=== PATIENT | female | born 1945 | race Caucasian/White ===

== ENCOUNTER → 2017-02-03 16:43 | Outpatient (CLI) | payer MEDICARE, OTHER | END | disposition home or self-care (01) | LOC: D.MAMMO 08:00 | DX: Z12.31 Encounter for screening mammogram for malignant neoplasm of breast (principal) ==

== ENCOUNTER → 2018-02-04 16:43 | Outpatient (CLI) | payer MEDICARE, OTHER | END | disposition home or self-care (01) | LOC: D.MAMMO 01-25 09:00 | DX: Z12.31 Encounter for screening mammogram for malignant neoplasm of breast (principal) ==

== ENCOUNTER 2019-02-15 08:00 | Outpatient (CLI) | payer MEDICARE, OTHER | END 2019-02-15 09:00 | disposition home or self-care (01) | LOC: D.MAMMO 08:00 | PROVIDERS: ATTEND Emergency Medicine | DX: Z12.31 Encounter for screening mammogram for malignant neoplasm of breast (principal) ==

== ENCOUNTER → 2019-02-23 18:29 | Outpatient (CLI) | payer MEDICARE, OTHER | END | disposition home or self-care (01) | LOC: D.LABREF 18:29 | PROVIDERS: ATTEND Urology | DX: N39.0 Urinary tract infection, site not specified (principal) ==

== ENCOUNTER → 2019-03-08 09:04 | Outpatient (CLI) | payer MEDICARE, OTHER | END | disposition home or self-care (01) | LOC: D.CT 09:04 | PROVIDERS: ATTEND Urology | DX: R31.0 Gross hematuria (principal) ==

== ENCOUNTER 2019-03-10 09:00 | Outpatient (CLI) | payer MEDICARE, OTHER | END 2019-03-10 10:00 | disposition home or self-care (01) | LOC: D.MAMMO 09:00 | PROVIDERS: ATTEND Emergency Medicine | DX: R92.8 Other abnormal and inconclusive findings on diagnostic imaging of breast (principal) ==

== ENCOUNTER → 2019-03-18 16:00 | Outpatient (CLI) | payer MEDICARE, OTHER | END | disposition home or self-care (01) | LOC: D.LABREF 16:00 | PROVIDERS: ATTEND Urology | DX: N39.0 Urinary tract infection, site not specified (principal) ==

== ENCOUNTER 2019-04-05 06:30 | Day surgery (SDC) | payer MEDICARE, OTHER ==
[2019-04-04 09:53] LABS: HEMATOCRIT 41.2 % (36.0-48.0); HEMOGLOBIN 14.2 g/dL (12-16); MCH 31.7 pg (26.0-34.0); MCHC 34.5 g/dL (31.0-37.0); MEAN PLATELET VOLUME 9.8 fL (7.4-10.4); RBC 4.48 10x6/uL (4.00-5.40); RDW 14.2 % (11.5-14.5); WBC 7.2 10x3/uL (4.8-10.8)
[2019-04-04 10:05] LABS: INR 1.06 (0.85-1.17); PROTIME 13.3 SECONDS (11.6-15.0)
[2019-04-04 10:06] LABS: CALC OSMOLALITY 284 mosm/kg (275-300); CALCIUM 9.8 mg/dL (8.5-10.1); CARBON DIOXIDE 31.6 mmol/L (21.0-32.0); CHLORIDE - SERUM 104 mmol/L (98-107); CREATININE - SERUM 0.6 mg/dL (0.6-1.3); GLUCOSE 109 mg/dL (74-106); POTASSIUM - SERUM 3.5 mmol/L (3.5-5.1); SODIUM 143 mmol/L (136-145); UREA NITROGEN 10 mg/dL (7-18); eGFR NON AFRICAN AMERICAN > 90 mL/min (90-120)
[~2019-04-05] VITALS: Ht 162.6 cm; Wt 72.6 kg
[~2019-04-05 06:30] MED LIST: AMBIEN10 MG PO; ASCORBIC ACID500 MG PO; ATIVAN0.5 MG PO; COUMADIN1 MG PO; COZAAR100 MG PO; CYANOCOBAL1000 MCG/4 IM; DETROL LA4 MG PO; FLUTICASONE PRO16 GM NASAL; ZIAC 10-6.25 MG1 TAB PO
[2019-04-05 07:32] VITALS: BP 110/74; Ht 162.6 cm; Wt 72.6 kg
--- NOTE | 2019-04-05 09:29 | NUR ---
0929 FL DIET SERVED.
--- NOTE | 2019-04-05 09:29 | NUR ---
0986 DR. GERMAN PAN.
--- NOTE | 2019-04-05 09:47 | OP ---
PATIENT NAME: ANSLEY KEARNEY MEDICAL RECORD: [id number] :46 LOCATION:D.OPS ADMISSION DATE: SURGEON: GEN PORTER MD DATE OF OPERATION: 04/05/2019 SURGEON: Gen Porter MD ANESTHESIA: TIVA by Anthony Bella CRNA. DIAGNOSES: Microscopic hematuria, interstitial cystitis. PROCEDURE: Cystoscopy, hydrodistention of the bladder, intravesical Rimso instillation. FINDINGS: Single ureteral orifices bilaterally with no bladder tumors. Diffuse bladder inflammation. BLOOD LOSS: None. CLINICAL HISTORY: This is a 73-year-old female who has had episodes of gross hematuria. She had a CT scan, which was normal and showed some colonic diverticulosis. She did have an UTI with enterococcus and Klebsiella at one of her visits. She has persistent microscopic hematuria. Today, she comes for a cystoscopy to complete the hematuria workup. SHE IS ALLERGIC TO SEVERAL MEDICATIONS, but she is not allergic to Ancef. She was given Ancef electronics commodity manager to the OR. DESCRIPTION OF PROCEDURE: The patient was given IV sedation. She was placed into lithotomy position and prepped and draped. A 21-Wolof cystoscope with 30-degree lens was used for visualization. She has no bladder tumors, but there is diffuse inflammation. This is probably exacerbated by her use of warfarin for stroke prevention. The warfarin has been held for the past 3 days. I performed hydrodistention of the bladder to 500 mL and held it for 2 minutes. The bladder was then emptied. We then inserted 50 mL of Rimso solution through a 14-Wolof red rubber catheter. The catheter was removed, leaving the solution in the bladder. The patient will be seen in 2 weeks to check on her voiding symptoms. TRANSINT:[id number] Voice Confirmation ID: [id number] DOCUMENT ID: [id number] GEN PORTER MD at 0947 CC: [id number] DICTATION DATE: 04/05/19914 BRICK SIDING APPLICATOR: 04/05/19925 [id number] [place] [address]
== END 2019-04-05 10:55 | disposition home or self-care (01) ==
LOC: D.OPS 06:30 → D.PAN 08:20 → D.OPS 08:30 → D.PAN 10:15 → D.OPS 10:55
PROVIDERS: Anesthesiology; ATTEND Urology
DX: N30.91 Cystitis, unspecified with hematuria (principal); Z01.812 Encounter for preprocedural laboratory examination

== ENCOUNTER → 2019-05-18 18:21 | Outpatient (CLI) | payer MEDICARE, OTHER ==
[2019-04-05 07:32] VITALS: BMI 27.5
== END | disposition home or self-care (01) ==
LOC: D.LABREF 18:21
PROVIDERS: ATTEND Urology
DX: Z00.01 Encounter for general adult medical examination with abnormal findings (principal)

== ENCOUNTER 2020-12-01 07:26 | Inpatient (IN) | payer MEDICARE, OTHER ==
[~2020-12-01] VITALS: Ht 162.6 cm; Wt 72.6 kg
--- NOTE | 2020-12-01 07:37 | NUR ---
PT STATES SHE DID NOT HIT HER HEAD WHEN FALLING AND DID NOT HAVE SYNCOPE.
[2020-12-01 08:46] LABS: BASOPHILS 0.1 % (0-2); EOSINOPHILS 0.8 % (0-7); HEMATOCRIT 40.8 % (36.0-48.0); HEMOGLOBIN 13.9 g/dL (12-16); IMMATURE GRANULOCYTES 0.1 % (0-5); LYMPHOCYTE ABS# 1.39 10x3/uL (1.18-3.74); LYMPHOCYTES 19.6 % (15-50); MCH 30.8 pg (26.0-34.0); MCHC 34.1 g/dL (31.0-37.0); MCV 90.5 fL (80.0-100.0); MEAN PLATELET VOLUME 9.4 fL (7.4-10.4); MONOCYTES 5.6 % (2-11); NEUTROPHIL ABS# 5.23 10x3/uL (1.56-6.13); NEUTROPHILS 73.8 % (40-80); PLATELET COUNT 246 10x3/uL (130-400); RBC 4.51 10x6/uL (4.00-5.40); WBC 7.1 10x3/uL (4.8-10.8)
[2020-12-01 08:55] LABS: INR 3.98 (0.85-1.17); PROTIME 36.2 SECONDS (11.6-15.0)
[2020-12-01 08:56] LABS: APTT 73.2 SECONDS (22.8-39.4)
[2020-12-01 09:03] LABS: CALC OSMOLALITY 279 mosm/kg (275-300); CALCIUM 9.3 mg/dL (8.5-10.1); CARBON DIOXIDE 28.4 mmol/L (21.0-32.0); CHLORIDE - SERUM 105 mmol/L (98-107); CREATININE - SERUM 0.6 mg/dL (0.6-1.3); GLUCOSE 120 mg/dL (74-106); POTASSIUM - SERUM 3.2 mmol/L (3.5-5.1); SODIUM 140 mmol/L (136-145); UREA NITROGEN 12 mg/dL (7-18); eGFR NON AFRICAN AMERICAN > 90 mL/min (90-120)
[2020-12-01 09:08] LABS: ALBUMIN 3.4 g/dL (3.4-5.0); ALKALINE PHOSPHATASE 69 U/L (30-120); ALT (SGPT) 27 U/L (10-68); BILIRUBIN - TOTAL 0.24 mg/dL (0.2-1.3); PROTEIN - SERUM 7.1 g/dL (6.4-8.2)
[2020-12-01 09:37] VITALS: BP 144/61
[2020-12-01 09:41] LABS: BILIRUBIN NEGATIVE (NEGATIVE); KETONE NEGATIVE (NEGATIVE); NITRITE NEGATIVE (NEGATIVE); UROBILINOGEN NORMAL mg/dL (< 2)
[2020-12-01 09:45] LABS: BACTERIA FEW HPF (NONE SEEN); WHITE CELLS - URINE 1 HPF (0-4)
[2020-12-01 10:13] VITALS: BP 145/66
--- NOTE | 2020-12-01 11:00 | NUR ---
RECEIVED TO ROOM 1208 VIA BED FROM ER. A/O X3. NO C/O OF PAIN UNLESS MOVING. SKIN INTACT WTIHOUT REDNESS. DENIES NEEDS.
[2020-12-01] MEDS ORDERED: ACETAMINOPHEN325 MG PO (11:04)
[2020-12-01 11:05] VITALS: BP 133/56; BMI 27.5
--- NOTE | 2020-12-01 13:00 | NUR ---
ATE ABOUT 75% OF LUNCH. DENIES NEEDS. NO C/O PAIN UNLESS SHE MOVES. WILL MONITOR.
--- NOTE | 2020-12-01 15:45 | NUR ---
RESTING QUIETLY IN BED WITH EYES CLOSED. NO NEEDS. NOTED.
[2020-12-01 16:22] VITALS: BP 148/75
--- NOTE | 2020-12-01 17:38 | NUR ---
REFUSED SUPPER TRAY. AGREED TO ALTERNATIVE OF SANDWICH. DENIES NEEDS. CALL IN TO [facility] FOR PAIN MEDS. DENIES NEEDS.
--- NOTE | 2020-12-01 19:30 | NUR ---
RECEIVED REPORT, WILL ASSUME CARE OF PT, VISITING WITH , DENIES ANY NEEDS AT THIS TIME, BED IS LOW, SRX2, CALL LIGHT IN REACH, WILL CONTINUE PLAN OF CARE
[2020-12-01 19:36] VITALS: BP 160/70
[2020-12-02 04:00] VITALS: BP 109/47
--- NOTE | 2020-12-02 06:23 | NUR ---
I have reviewed this patient and I concur with the Shift Assessment completed by the Licensed Practical Nurse today this shift.
[2020-12-02 06:39] LABS: BASOPHILS 0.4 % (0-2); EOSINOPHILS 1.4 % (0-7); HEMOGLOBIN 12.6 g/dL (12-16); IMMATURE GRANULOCYTES 0.4 % (0-5); LYMPHOCYTE ABS# 2.43 10x3/uL (1.18-3.74); LYMPHOCYTES 30.2 % (15-50); MCH 30.1 pg (26.0-34.0); MCHC 33.2 g/dL (31.0-37.0); MCV 90.9 fL (80.0-100.0); MEAN PLATELET VOLUME 9.7 fL (7.4-10.4); MONOCYTES 7.2 % (2-11); NEUTROPHIL ABS# 4.87 10x3/uL (1.56-6.13); NEUTROPHILS 60.4 % (40-80); PLATELET COUNT 269 10x3/uL (130-400); RBC 4.18 10x6/uL (4.00-5.40); RDW 14.4 % (11.5-14.5); WBC 8.1 10x3/uL (4.8-10.8)
[2020-12-02 07:28] VITALS: BP 138/63
[2020-12-02 07:30] LABS: ALBUMIN 2.9 g/dL (3.4-5.0); ALKALINE PHOSPHATASE 60 U/L (30-120); ALT (SGPT) 23 U/L (10-68); BILIRUBIN - TOTAL 0.42 mg/dL (0.2-1.3); CALC OSMOLALITY 276 mosm/kg (275-300); CALCIUM 8.4 mg/dL (8.5-10.1); CARBON DIOXIDE 26.3 mmol/L (21.0-32.0); CHLORIDE - SERUM 106 mmol/L (98-107); CREATININE - SERUM 0.6 mg/dL (0.6-1.3); GLUCOSE 100 mg/dL (74-106); POTASSIUM - SERUM 3.9 mmol/L (3.5-5.1); PROTEIN - SERUM 5.8 g/dL (6.4-8.2); SODIUM 139 mmol/L (136-145); UREA NITROGEN 9 mg/dL (7-18); eGFR NON AFRICAN AMERICAN > 90 mL/min (90-120)
--- NOTE | 2020-12-02 08:04 | NUR ---
AWAKE AND ALERT. ORIENTED X3. NO C/O AT THIS TIME. SITTING UP IN BED EATING BREAKFAST. LUNGS ARE CLEAR BILATERALLY, NO COUGH NOTED. SKIN IS INTACT WITHOUT REDNESS. IV TO LEFT AC IS PATENT WITHOUT REDNESS AT INSERTION SITE. DENIES NEEDS.
--- NOTE | 2020-12-02 09:00 | NUR ---
ATE MOST OF BREAKFAST. TOOK AM MEDS WITHOUT DIFFICULTY. C/O SOME FEELINGS OF NAUSEA. REQUESTED AND GIVEN ONE HYDROCODONE FOR PAIN LEVEL 5 AND 4MG ZOFRAN SLOW IVP FOR C/O NAUSEA. WILL MONITOR.
--- NOTE | 2020-12-02 10:30 | NUR ---
RESTING QUIETLY IN BED WITH EYES CLOSED. NO NEEDS NOTED.
--- NOTE | 2020-12-02 12:52 | NUR ---
ATE LESS THAN HALF OF LUNCH. DENIES NEEDS. NO C/O NAUSEA AT THIS TIME.
[2020-12-02 13:24] VITALS: BP 139/64
[2020-12-02 16:40] VITALS: BP 148/72
--- NOTE | 2020-12-02 19:10 | NUR ---
ATE MOST OF SUPPER. DENIES NEEDS AT THIS TIME. NO CHANGES NOTED.
--- NOTE | 2020-12-02 19:13 | NUR ---
PATIENT RESTING IN BED WITH NO S/S OF DISTRESS. PATIENT DENIES NEEDS AT THIS TIME. BED IN LOWEST POSITION AND CALL LIGHT WITHIN REACH. ENCOURAGED THE PATIENT TO CALL WITH NEEDS.
[2020-12-02 20:08] VITALS: BP 138/64
--- NOTE | 2020-12-02 20:43 | NUR ---
ADMINISTERED MEDS PER ORDERS. PATIENT JEET WELL. ENCOURAGED TO CALL WITH NEEDS.
[2020-12-03] VITALS (12 sets, daily range): BP systolic 111–144; BP diastolic 59–80; Ht 162.6 cm; Wt 72.6 kg
--- NOTE | 2020-12-03 07:45 | NUR ---
PT RESTING QUIETLY IN BED. RESP EVEN AND UNLABORED. PT REPORTS PAIN TO RIGHT LOWER EXTREMITY 5/10 AT THIS TIME. DISCUSSED NEXT TIME PAIN MEDICATION COULD BE ADMINISTERED PER MD ORDERS. PT VOICES UNDERSTANDING. IV TO LEFT AC WITH NS @ 100ML/HR INFUSING VIA PUMP. SITE WITHOUT REDNESS OR EDEMA. F/C PATENT TO GRAVITY. PT NPO FOR UPCOMING SURGERY. PT VOICES UNDERSTANDING OF NPO STATUS. DENIES FURTHER NEEDS AT THIS TIME. CL WITHIN REACH. ENCOURAGED TO CALL WITH NEEDS. CONTINUE POC
[2020-12-03 10:07] LABS: BASOPHILS 0.3 % (0-2); EOSINOPHILS 1.4 % (0-7); HEMATOCRIT 38.7 % (36.0-48.0); HEMOGLOBIN 12.9 g/dL (12-16); IMMATURE GRANULOCYTES 0.3 % (0-5); LYMPHOCYTE ABS# 1.66 10x3/uL (1.18-3.74); LYMPHOCYTES 18.9 % (15-50); MCH 30.4 pg (26.0-34.0); MCHC 33.3 g/dL (31.0-37.0); MCV 91.3 fL (80.0-100.0); MEAN PLATELET VOLUME 9.5 fL (7.4-10.4); MONOCYTES 6.4 % (2-11); NEUTROPHIL ABS# 6.37 10x3/uL (1.56-6.13); NEUTROPHILS 72.7 % (40-80); PLATELET COUNT 253 10x3/uL (130-400); RBC 4.24 10x6/uL (4.00-5.40); RDW 14.1 % (11.5-14.5); WBC 8.8 10x3/uL (4.8-10.8)
[2020-12-03 10:25] LABS: CALC OSMOLALITY 277 mosm/kg (275-300); CALCIUM 8.6 mg/dL (8.5-10.1); CARBON DIOXIDE 27.7 mmol/L (21.0-32.0); CHLORIDE - SERUM 106 mmol/L (98-107); CREATININE - SERUM 0.5 mg/dL (0.6-1.3); GLUCOSE 108 mg/dL (74-106); MAGNESIUM - SERUM 2.3 mg/dL (1.8-2.4); POTASSIUM - SERUM 3.4 mmol/L (3.5-5.1); SODIUM 139 mmol/L (136-145); UREA NITROGEN 9 mg/dL (7-18); eGFR NON AFRICAN AMERICAN > 90 mL/min (90-120)
[2020-12-03 10:35] LABS: INR 1.26 (0.85-1.17); PROTIME 14.7 SECONDS (11.6-15.0)
--- NOTE | 2020-12-03 19:00 | NUR ---
REPORT GIVEN BY [place] [facility]
--- NOTE | 2020-12-03 19:15 | NUR ---
PT TO ROOM 1208 FROM SURGERY. STARTED VS SHEET. SHE IS VERY DROWSEY NOW. WILL BE CHECKING IN AT LEAST EVERY 15 MINUTES.
--- NOTE | 2020-12-03 20:00 | NUR ---
ASSESSMENT COMPLETED. PT STILL SLEEPY. SHE HAS A DRY DRESSING TO HER RIGHT HIP AREA. SHE HAS 02 @ 3L/NC. PT FELL A WEEK AGO. SHE HAS A NICE SIZE BLUE BRUISE ON THE RIGHT HIP. SHE HAS A AFOLEY CATHETER. SHE HAS TEDS/SCD IN PLACE. SHE IS STILL NOT C/O ANY PAIN AT THIS TIME. I GAVE HER THE TALK ABOUT NOT LETTING PAIN GET AHEAD OF HER PAIN. VS STILL Q 15 MIN. SKIN WARM AND DRY. IV IS IN THE RIGHT HAND WITH FLUIDS INFUSING AT 100ML/HR.
--- NOTE | 2020-12-03 22:00 | NUR ---
VS CONT. PT ATE SOME SALTINES BEFORE HER MEDS WERE GIVEN. NO NAUSEA. NO VOMITING. PT IS WIDE AWAKE AT THIS TIME. STILL NO C/O
--- NOTE | 2020-12-03 23:30 | NUR ---
PT C/O PAIN THAT SHE RATES A 7. 1 MG OF DILAUDID WAS GIVEN SLOWLY IV.
[2020-12-04] VITALS: BP 125/71
--- NOTE | 2020-12-04 | NUR ---
PT IS RESTING QUIETLY WITH HER EYES CLOSED WITHOUT C/O
--- NOTE | 2020-12-04 03:15 | NUR ---
PT HAS BEEN AWAKE AND TALKING. SHE IS RESTING AGAIN NOW QUIETLY.
[2020-12-04 04:00] VITALS: BP 114/58
--- NOTE | 2020-12-04 04:40 | NUR ---
PT IS C/O PAIN. SHE RATED THIS PAIN A 7 TO HER RIGHT HIP. SHE STATES SHE DOES NOT WANT ANY MORE DILAUDID OR MORPHINE B/C IT MAKES HER FEEL LIKE SHE'S SPINNING. I EXPLAINED TO HER THAT SHE DID NOT HAVE JUST TYLENOL ORDERED BUT I HAD NORCO'S ORDERED WHICH HAD TYLENOL IN THEM. SHE ELECTED TO TAKE 10 MG OF NORCO PO.
--- NOTE | 2020-12-04 04:50 | NUR ---
NORCO 10 MG GIVEN PO FOR PAIN. PT IS EATING ON SOME EDDIE CRACKERS TO HELP PREVENT NAUSEA.
[2020-12-04 07:00] VITALS: BP 186/96
[2020-12-04 07:12] LABS: CALCIUM 7.8 mg/dL (8.5-10.1); CARBON DIOXIDE 27.1 mmol/L (21.0-32.0); CHLORIDE - SERUM 105 mmol/L (98-107); CREATININE - SERUM 0.6 mg/dL (0.6-1.3); GLUCOSE 150 mg/dL (74-106); SODIUM 141 mmol/L (136-145); eGFR NON AFRICAN AMERICAN > 90 mL/min (90-120)
[2020-12-04 07:14] LABS: CALC OSMOLALITY 284 mosm/kg (275-300); POTASSIUM - SERUM 4.1 mmol/L (3.5-5.1); UREA NITROGEN 15 mg/dL (7-18)
[2020-12-04 07:19] LABS: BASOPHILS 0.1 % (0-2); EOSINOPHILS 0 % (0-7); HEMOGLOBIN 11.8 g/dL (12-16); IMMATURE GRANULOCYTES 0.4 % (0-5); LYMPHOCYTES 8.5 % (15-50); MCH 30.1 pg (26.0-34.0); MCHC 32.8 g/dL (31.0-37.0); MCV 91.8 fL (80.0-100.0); MEAN PLATELET VOLUME 9.7 fL (7.4-10.4); MONOCYTES 6.8 % (2-11); NEUTROPHIL ABS# 8.86 10x3/uL (1.56-6.13); NEUTROPHILS 84.2 % (40-80); PLATELET COUNT 300 10x3/uL (130-400); RBC 3.92 10x6/uL (4.00-5.40); RDW 14.1 % (11.5-14.5); WBC 10.5 10x3/uL (4.8-10.8)
--- NOTE | 2020-12-04 09:08 | NUR ---
PT C/O PAIN 04/13. PRN PAIN MED GIVEN. REQUESTED NORCO AT PRESENT TIME. PT STABLE WITH EQUAL NON LABORED RR. AFEBRILE AT PRESENT TIME. WILL RE ASSESS PAIN. WILL CONT TO MONITOR.
--- NOTE | 2020-12-04 09:36 | NUR ---
PT REPORTS PAIN 7/10 AFTER THERAPY GOT PT UP FROM BED. PT REPORTS DOES NOT WANT THE MORPHINE THAT IT MAKES HER SICK. HOWEVER WOULD LIKE SOMETHING TO CUT THE PAIN DOWN. WILL RE ASSESS AND GIVE PRN PAIN MED PER EMAR.
[2020-12-04 11:00] VITALS: BP 164/80
--- NOTE | 2020-12-04 11:17 | OP ---
PATIENT NAME: ANSLEY KEARNEY MEDICAL RECORD: [id number] :46 LOCATION:D.M3 D.1208 ADMISSION DATE:12/01/20 SURGEON: SHANTANU BEYER DO DATE OF OPERATION: 12/03/2020 PROCEDURE PERFORMED: Right total hip arthroplasty. PREOPERATIVE DIAGNOSIS: Right femoral neck fracture, displaced. POSTOPERATIVE DIAGNOSIS: Right femoral neck fracture, displaced. INDICATIONS: Ms. Kearney is a 75-year-old female who fell approximately 11 days ago and showed up to the ER 3 days ago. She said that she had right hip pain and could hardly bear weight on it. X-rays were taken and seen to have a displaced right femoral neck fracture. Her INR was 3.98, too high to do surgery. I gave him vitamin K and told her would probably be Thursday by the time it came down and nothing I did. Today was 1.2 and within the range to be able to operate on her. She is aware of the risk of this surgery including infection, bleeding, damage to nerves and vessels in the area, continued pain, fracture, bleeding, loosening of the implants, failure of implants, leg length discrepancy, blood clots and even and she signed the consent. SURGEON: Shantanu Beyer DO DESCRIPTION OF PROCEDURE: The patient was taken to the operative suite, laid in supine position. Given general anesthetic and intubated. She was given 2 grams of Ancef preoperatively. She was then moved over to the [place] table and positioned. The right hip was prepped and draped in sterile fashion. A timeout was performed. Everyone was in agreement with the correct site, side, patient, and procedure. We then began by making careful dissection down over the tensor fascia mannie muscle to the muscle belly, took the fascia anteriorly and muscle belly posteriorly, opened up rectus interval. The rectus was then taken medially and the tensor fascia mannie laterally. I then coagulated the vessels in the area and put Hohmanns around the neck and opened up the capsule and a gush of blood came out of the capsule from the fracture, tagged the capsule, put Hohmanns around the fractured neck, recut the neck, removed the head and neck, and then removed the labrum and pulvinar and the acetabulum and then started reaming first with a 42 reamed up to a 48. I then impacted the cup and saw that went quite down. I reamed with a 48 and impacted the cup in. The 48 fit very well and I attempted to check to see if it was loose and was not, it was very well placed with a Marcell and then impacted the liner in under fluoro. I then exposed the femur and put the femoral hook in and raised the femur up. I used cookie cutter, canal finder and then released any release I needed to and broached from a 7 up to a 9 and 9 fit very well. Put a -6 neck and head on, reduced the hip. The hip reduced very well. X-rays were taken and they were equal lengths to the left and right on lesser trochanter/tuberosities. I then dislocated that, removed the trials and irrigated and put the actual implant in, impacted in the stem and then put a dual mobility -6 neck head on, reduced it and then x-rays were taken and no fracture is seen in the femur. There were equal lengths in the lesser tuberosities. I then irrigated with 10% povidone iodine and 500 mL normal saline solution and irrigated out with over a liter of normal saline. I let it sit for a minute. I then put in Rishi powder, vancomycin and tobramycin powder, and then closed the tensor fascia mannie fascia with #1 Vicryl in a [id number] and then a running locking stitch and the skin with 2-0 Vicryl in inverted interrupted fashion, 4-0 Monocryl running on OPERATIVE REPORT [id number] ANSLEY KEARNEY the skin. Prineo glue was placed on the skin and then once it dried, Telfa and Tegaderm. She was then awakened and taken to recovery in stable condition. Blood loss approximately 300 mL. COMPLICATIONS: None. TRANSINT:[id number] Voice Confirmation ID: [id number] DOCUMENT ID: [id number] SHANTANU BEYER DO at 1117 CC: [id number] DICTATION DATE: 12/03/20 183 FLIGHT TEST DATA ACQUISITION TECHNICIAN: 12/04/20 0025 ADM IN [facility] [address] [place] [id number]
--- OUTSIDE RECORDS SUMMARY | 2020-12-04 11:28 | XMS Report ---
Demographics + + + | Address | [address] | | | [place], [place] | | | [address] | + + + | Home Phone | | + + + | Preferred Language | Unknown | + + + | Marital Status | | + + + | Baptism Affiliation | Unknown | + + + | Race | White | + + + | Ethnic Group | Not or | + + + Author + + + | Author | [facility], | | | [facility] | | | [place] | + + + | Organization | [facility], | | | [facility] | | | [place] | + + + | Address | [address] | | | [place] [address] | | | | + + + | Phone | [phone] | + + + Care Team Providers + +------+ + | Care Program Review Director Name | Role | Phone | + +------+ + | MARIAM HAWLEY | 3 | [phone] | + +------+ + | MARIAM HAWLEY | 4 | [phone] | + +------+ + Reason for Referral Reason for Visit Osteoarthritis of knee Assessment No assessment recorded. Patient Targets + + + + | Encounter Date | Instructions | Goals | | | | | | | | | + + + + | 12/04/2020 | | | | | | | | | | | + + + + Plan of Treatment + + + + + + + | Reminders | | Order | Submit | Provider | Details | | | | Date | Date | | | | | | | | | | | | | | | | | | | | | | | | | | | | | | | + + + + + + + | | None | | | | | | | recorded. | | | | | | | | | | | | | | | | | | | | | | | | | | | Appointme | | | | | | | nts | | | | | | | | | | | | | | | | | | | | | | | | | | | | | | | | | | | | | | | | | | | | | | | | | | | | | | | | | | | | | | + + + + + + + | | None | | | | | | | recorded. | | | | | | | | | | | | | | | | | | | | Lab | | | | | | | | | | | | | | | | | | | | | | | | | | | | | | | | | | | | | | | | | | | | | | | | | | | | | | | | | | | | | | + + + + + + + | | | | | | | | | | | | National | | | | | 1 | | Park | | | | | | 1 | Medical | | | | | | | Center, | | | Referral | orthopedi | | | [address] | | | | c | | | Medical | | | | referral | | | [address], Hot | | | | | | | [place], | | | | | | | [place], | | | | | | | [address], [place] | | | | | | | (501) | | | | | | | [address] | | | | | | | | | | | | | | | | | | | | | | | | | | | | | | + + + + + + + | | None | | | | | | | recorded. | | | | | | | | | | | | | | | | | | | | | | | | | | | Procedure | | | | | | | s | | | | | | | | | | | | | | | | | | | | | | | | | | | | | | | | | | | | | | | | | | | | | | | | | | | | | | | | | | | | | | + + + + + + + | | None | | | | | | | recorded. | | | | | | | | | | | | | | | | | | | | | | | | | | | Surgeries | | | | | | | | | | | | | | | | | | | | | | | | | | | | | | | | | | | | | | | | | | | | | | | | | | | | | | | | | | | | | | + + + + + + + | | None | | | | | | | recorded. | | | | | | | | | | | | | | | | | | | | | | | | | | | Imaging | | | | | | | | | | | | | | | | | | | | | | | | | | | | | | | | | | | | | | | | | | | | | | | | | | | | | | | | | | | | | | + + + + + + + Results +--------+--------+--------+--------+--------+--------+--------+--------+ | Date | Name | Descri | Value | Unit | Range | Abnorm | Provid | | | | ption | | | | al | er | | | | | | | | Flag | Detail | | | | | | | | | | | | | | | | | | | | | | | | | | | | | | | | | | | | | | | | | | | | | | | | | | | | | | | +--------+--------+--------+--------+--------+--------+--------+--------+ | 12/02/ | PT/INR | | 2.00 | | 0.85-1 | high | | | 2021 | | | | | .17 | | | | | | | | | | | | | | | | | | | | | | | | | | | | | | | | | | | | | | | | | | | | | | | | | | | INR in | | | | | Nation | | | | | | | | | al | | | | platel | | | | | Park | | | | et | | | | | Medica | | | | poor | | | | | l | | | | plasma | | | | | Center | | | | by | | | | | | | | | coagul | | | | | | | | | ation | | | | | | | | | assay | | | | | | | | | | | | | | | | | | | | | | | | | | | | | | | | | | | | | | | | | | | | | | | | | | | | | | | | | | | | | | | | | | | | | | | | | | | | | | | | | | | | | | | | | | | | | | | | | | | | | | | | 1909 | | | | | | | | | [address] | | | | | | | | | [address], | | | | | | | | | Hot | | | | | | | | | Spring | | | | | | | | | s, [place], | | | | | | | | | | | | | | | | | | [address]- | | | | | | | | | [address], | | | | | | | | | Ph | | | | | | | | | (501) | | | | | | | | | 321[address]10 | | | | | | | | | 00 | | | | | | | | | | | | | | | | | | | | | | | | | | | | | | | | | | | | | | | | | | | | | | | | | | | | | | | | | | | | | | | | | | | | | | | | | | | | | | | | | | | | | | | | | | | | | | | | | | | | +--------+--------+--------+--------+--------+--------+--------+--------+ | 02/28/ | PT/INR | | 21.0 | second | 11.6-1 | high | | | 2021 | | | | s | 5.0 | | | | | | | | | | | | | | | | | | | | | | | | | | | | | | | | | | | | | | | | | | | | | | | | | | | prothr | | | | | Nation | | | | ombin | | | | | al | | | | time | | | | | Park | | | | (PT) | | | | | Medica | | | | in | | | | | l | | | | platel | | | | | Center | | | | et | | | | | | | | | poor | | | | | | | | | plasma | | | | | | | | | by | | | | | | | | | coagul | | | | | | | | | ation | | | | | | | | | assay | | | | | | | | | | | | | | | | | | | | | | | | | | | | | | | | | | | | | | | | | | | | | | | | | | | | | | | | | | | | | | | | | | | | | | | | | | | | | 1909 | | | | | | | | | [address] | | | | | | | | | [address], | | | | | | | | | Hot | | | | | | | | | Spring | | | | | | | | | s, [place], | | | | | | | | | | | | | | | | | | [address]- | | | | | | | | | [address], | | | | | | | | | Ph | | | | | | | | | (501) | | | | | | | | | 321[address]10 | | | | | | | | | 00 | | | | | | | | | | | | | | | | | | | | | | | | | | | | | | | | | | | | | | | | | | | | | | | | | | | | | | | | | | | | | | | | | | | | | | | | | | | | | | | | | | | | | | | | | | | | | | | | | | | | +--------+--------+--------+--------+--------+--------+--------+--------+ | | XR, | | | | | | | | | hip, | | | | | | | | | unilat | | | | | | | | | eral, | | | | | | | | | 1 view | | | | | | | | | | | | | | | | | | | | | | | | | | | | | No | | | | Nation | | | | | observ | | | | al | | | | | ation | | | | Park | | | | | record | | | | Medica | | | | | ed. | | | | l | | | | | | | | | Center | | | | | | | | | | | | | | | | | | (Imagi | | | | | | | | | ng) | | | | | | | | | | | | | | | | | | | | | | | | | | | | | | | | | | | | | | | | | | | | | | | | | | | | | | | | | | | | | | | | | | | | | | | | | | | | | | | | | | | | | | | | | | | | | | | | | | | | | | | | | | | | | | | | | | | | | | | | | | | | | | | | | | | | | | | 1909 | | | | | | | | | [address] | | | | | | | | | [address], | | | | | | | | | Hot | | | | | | | | | Spring | | | | | | | | | s | | | | | | | | | Nation | | | | | | | | | al | | | | | | | | | Park, | | | | | | | | | [place], | | | | | | | | | [address], | | | | | | | | | Ph | | | | | | | | | (501) | | | | | | | | | [address] | | | | | | | | | 75 | | | | | | | | | | | | | | | | | | | | | | | | | | | | | | | | | | | | | | | | | | | | | | | | | | | | | | | | | | | | | | | | | | | | | | | | | | | | | | | | | | | | | | | | | | | | | | | | | | | | +--------+--------+--------+--------+--------+--------+--------+--------+ | | imagin | | | | | | | | | g/diag | | | | | | | | | nostic | | | | | | | | | | | | | | | | | | result | | | | | | | | | | | | | | | | | | | | | | | | | | | | | No | | | | Nation | | | | | observ | | | | al | | | | | ation | | | | Park | | | | | record | | | | Medica | | | | | ed. | | | | l | | | | | | | | | Center | | | | | | | | | | | | | | | | | | (Imagi | | | | | | | | | ng) | | | | | | | | | | | | | | | | | | | | | | | | | | | | | | | | | | | | | | | | | | | | | | | | | | | | | | | | | | | | | | | | | | | | | | | | | | | | | | | | | | | | | | | | | | | | | | | | | | | | | | | | | | | | | | | | | | | | | | | | | | | | | | | | | | | | | | | 1909 | | | | | | | | | [address] | | | | | | | | | [address] | | | | | | | | | Hot | | | | | | | | | Spring | | | | | | | | | s | | | | | | | | | Nation | | | | | | | | | al | | | | | | | | | Park, | | | | | | | | | [place], | | | | | | | | | [address], | | | | | | | | | Ph | | | | | | | | | (501) | | | | | | | | | [address] | | | | | | | | | 75 | | | | | | | | | | | | | | | | | | | | | | | | | | | | | | | | | | | | | | | | | | | | | | | | | | | | | | | | | | | | | | | | | | | | | | | | | | | | | | | | | | | | | | | | | | | | | | | | | | | | +--------+--------+--------+--------+--------+--------+--------+--------+ Problems +---------+---------+---------+---------+---------+---------+---------+ | Name | Status | Last | Onset | Resolut | Lateral | Problem | | | | Modifie | Date | ion | ity | Type | | | | d Date | | Date | | | | | | | | | | | | | | | | | | | | | | | | | | | | | | | | | | | | | | | | | | | +---------+---------+---------+---------+---------+---------+---------+ | Hyperch | Active | | | | | | | olester | | 019 | 019 | | | | | olemia | | | | | | | | | | | | | | | | | | | | | | | | | | | | | | | | | | | | | | | | | | | | | | | +---------+---------+---------+---------+---------+---------+---------+ | Hyperte | Active | | | | | | | nsive | | 019 | 019 | | | | | disorde | | | | | | | | r | | | | | | | | | | | | | | | | | | | | | | | | | | | | | | | | | | | | | | | | | | | | | | | +---------+---------+---------+---------+---------+---------+---------+ | Cerebro | Active | | | | | | | vascula | | 019 | 019 | | | | | r | | | | | | | | acciden | | | | | | | | t | | | | | | | | | | | | | | | | | | | | | | | | | | | | | | | | | | | | | | | | | | | | | | | +---------+---------+---------+---------+---------+---------+---------+ | Recurre | Active | | | | | | | nt | | 019 | 019 | | | | | urinary | | | | | | | | tract | | | | | | | | infecti | | | | | | | | on | | | | | | | | | | | | | | | | | | | | | | | | | | | | | | | | | | | | | | | | | | | | | | | +---------+---------+---------+---------+---------+---------+---------+ | Blood | Active | | | | | | | in | | 019 | 019 | | | | | urine | | | | | | | | | | | | | | | | | | | | | | | | | | | | | | | | | | | | | | | | | | | | | | | +---------+---------+---------+---------+---------+---------+---------+ | Pain of | Active | | | | | | | left | | 019 | 019 | | | | | hip | | | | | | | | joint | | | | | | | | | | | | | | | | | | | | | | | | | | | | | | | | | | | | | | | | | | | | | | | +---------+---------+---------+---------+---------+---------+---------+ Procedures Surgical History + + + + + | Date | Name | Laterality | Status | | | | | | | | | | | | | | | | + + + + + | | | | active | | | | | | | | | | | | | appendectomy | | | | | | | | | | | | | | | | | | | | | | | | | | | | + + + + + Imaging Results None recorded. Medical Equipment None Reported. Allergies + + + + + + + | Name | Reaction | Severity | Status | Onset | Category | | | | | | | | | | | | | | | | | | | | | | | | | | | | | + + + + + + + | | | | | | | | | | | | | | | | | | | | | | | | | | | | | | | | | | | | Diclofex | | | active | | Medicatio | | DC | | | | | n Allergy | | | | | | | | | | | | | | | | | | | | | | | | | | | | | | | | | | | | | | | | | | | | | | | | | | | | | | | | | + + + + + + + | | | | | | | | | | | | | | | | | | | | | | | | | | | | | | | | | | | | erythromy | | | active | | Medicatio | | maryann base | | | | | n Allergy | | | | | | | | | | | | | | | | | | | | | | | | | | | | | | | | | | | | | | | | | | | | | | | | | | | | | | | | | + + + + + + + | | | | | | | | | | | | | | | | | | | | | | | | | | | | | | rash | | | | | | Flexeril | | | active | | Non-Medic | | | | | | | ation | | | | | | | Allergy | | | | | | | | | | | | | | | | | | | | | | | | | | | | | | | | | | | | | | | | | | | | | | | | | | | | | | | | | + + + + + + + | | | | | | | | | | | | | | | | | | | | | | | | | | | | | | other | | | | | | Levaquin | | | active | | Medicatio | | | | | | | n Allergy | | | | | | | | | | | | | | | | | | | | | | | | | | | | | | | | | | | | | | | | | | | | | | | | | | | | | | | | | + + + + + + + | | | | | | | | | | | | | | | | | | | | | | | | | | | | | | | | | | | | Macrobid | | | active | | Medicatio | | | | | | | n Allergy | | | | | | | | | | | | | | | | | | | | | | | | | | | | | | | | | | | | | | | | | | | | | | | | | | | | | | | | | + + + + + + + | | | | | | | | | | | | | | | | | | | | | | | | | | | | | | | | | | | | Statins-H | | | active | | Medicatio | | mg-Coa | | | | | n Allergy | | Reductase | | | | | | | | | | | | | | Inhibitor | | | | | | | s | | | | | | | | | | | | | | | | | | | | | | | | | | | | | | | | | | | | | | | | | | | | | | | | | | | | | | | | | | | | | | + + + + + + + Medications + + + + + + + | Name | Sig | Start | Stop Date | Status | Note | | | | Date | | | | | | | | | | | | | | | | | | | | | | | | | | | | | | | | + + + + + + + | | | | | active | | | | | | | | | | | | | | | | | | | | | | | | | | | | | | | | | | | | | | | | | | | | | losartan | | | | | | | 50 mg | | | | | | | tablet | | | | | | | | | | | | | | | | | | | | | | | | | | | | | | | | | | | | | | | | | | | | | | | | | | | | | | | | | | | | | | | | | | | | | | | | | | | | + + + + + + + | | | | | active | | | | | | | | | | | | | | | | | | | | | | | | | | | | | | | | | | | | | | | | | | | | | doxycycli | | | | | | | ne | | | | | | | hyclate | | | | | | | 100 mg | | | | | | | capsule | | | | | | | | | | | | | | | | | | | | | | | | | | | | | | | | | | | | | | | | | | | | | | | | | | | | | | | | | | | | | | | | | | | | | | | | | | | | + + + + + + + | | | | | active | | | | | | | | | | | | | | | | | | | | | | | | | | | | | | | | | | | | | | | | | | | | | fluconazo | | | | | | | le 150 mg | | | | | | | tablet | | | | | | | | | | | | | | | | | | | | | | | | | | | | | | | | | | | | | | | | | | | | | | | | | | | | | | | | | | | | | | | | | | | | | | | | | | | | + + + + + + + | | | | | completed | | | | | | | | | | | | | 05/22/201 | | | | | | | 9 | | | | | | | | | | | | | | | | | | | | | | | | | ciproflox | | | | | | | acin 250 | | | | | | | mg tablet | | | | | | | | | | | | | | | | | | | | | | | | | | | | | | | | | | | | | | | | | | | | | | | | | | | | | | | | | | | | | | | | | | | | | | | | | | | | + + + + + + + | | | | | active | | | | | | | | | | | | 09/18/201 | | | | | | | 9 | | | | | | Take | | | | | | | 1 capsule | | | | | | | every | | | | | | Detrol LA | day by | | | | | | 4 mg | oral | | | | | | capsule,e | route for | | | | | | xtended | 90 days. | | | | | | release | | | | | | | | | | | | | | | | | | | | | | | | | | | | | | | | | | | | | | | | | | | | | | | | | | | | | | | | | | | | | | | | | | | | | | | | | | | | + + + + + + + | | | | | active | | | | | | | | | | | | | | | | | | | | | | | | | Take | | | | | | | 1 tablet | | | | | | | every 12 | | | | | | sulfameth | hours by | | | | | | oxazole | oral | | | | | | 800 | route for | | | | | | mg-trimet | 10 days. | | | | | | hoprim | | | | | | | 160 mg | | | | | | | tablet | | | | | | | | | | | | | | | | | | | | | | | | | | | | | | | | | | | | | | | | | | | | | | | | | | | | | | | | | | | | | | | | | | | | | | | | | | | | + + + + + + + | | | | | active | | | | | | | | | | | | | | | | | | | | | | | | | | | | | | | | | | | | | | | | | | | | | prednison | | | | | | | e 10 mg | | | | | | | tablets | | | | | | | in a dose | | | | | | | pack | | | | | | | | | | | | | | | | | | | | | | | | | | | | | | | | | | | | | | | | | | | | | | | | | | | | | | | | | | | | | | | | | | | | | | | | | | | | + + + + + + + | | | | | active | | | | | | | | | | | | | | | | | | | | | | | | | | | | | | | | | | | | | | | | | | | | | Ziac 10 | | | | | | | mg-6.25 | | | | | | | mg tablet | | | | | | | | | | | | | | | | | | | | | | | | | | | | | | | | | | | | | | | | | | | | | | | | | | | | | | | | | | | | | | | | | | | | | | | | | | | | + + + + + + + | | | | | active | | | | | | | | | | | | | | | | | | | | | | | | | | | | | | | | | | | | | | | | | | | | | lorazepam | | | | | | | 0.5 mg | | | | | | | tablet | | | | | | | | | | | | | | | | | | | | | | | | | | | | | | | | | | | | | | | | | | | | | | | | | | | | | | | | | | | | | | | | | | | | | | | | | | | | + + + + + + + | | | | | active | | | | | | | | | | | | | | | | | | | | | | | | | | | | | | | | | | | | | | | | | | | | | cyanocoba | | | | | | | harpreet | | | | | | | (vit | | | | | | | B-12) | | | | | | | 1,000 | | | | | | | mcg/mL | | | | | | | injection | | | | | | | solution | | | | | | | | | | | | | | | | | | | | | | | | | | | | | | | | | | | | | | | | | | | | | | | | | | | | | | | | | | | | | | | | | | | | | | | | | | | | + + + + + + + | | | | | active | | | | | | | | | | | | | | | | | | | | | | | | | | | | | | | | | | | | | | | | | | | | | polymyxin | | | | | | | B | | | | | | | sulfate | | | | | | | 10,000 | | | | | | | unit-trim | | | | | | | ethoprim | | | | | | | 1 mg/mL | | | | | | | eye drops | | | | | | | | | | | | | | | | | | | | | | | | | | | | | | | | | | | | | | | | | | | | | | | | | | | | | | | | | | | | | | | | | | | | | | | | | | | | + + + + + + + | | | | | active | | | | | | | | | | | | | | | | | | | | | | | | | | | | | | | | | | | | | | | | | | | | | warfarin | | | | | | | 5 mg | | | | | | | tablet | | | | | | | | | | | | | | | | | | | | | | | | | | | | | | | | | | | | | | | | | | | | | | | | | | | | | | | | | | | | | | | | | | | | | | | | | | | | + + + + + + + | | | | | active | | | | | | | | | | | | | | | | | | | | | | | | | | | | | | | | | | | | | | | | | | | | | omeprazol | | | | | | | e 20 mg | | | | | | | capsule,d | | | | | | | elayed | | | | | | | release | | | | | | | | | | | | | | | | | | | | | | | | | | | | | | | | | | | | | | | | | | | | | | | | | | | | | | | | | | | | | | | | | | | | | | | | | | | | + + + + + + + | | | | | active | | | | | | | | | | | | | | | | | | | | | | | | | | | | | | | | | | | | | | | | | | | | | clobetaso | | | | | | | l 0.05 % | | | | | | | topical | | | | | | | ointment | | | | | | | | | | | | | | | | | | | | | | | | | | | | | | | | | | | | | | | | | | | | | | | | | | | | | | | | | | | | | | | | | | | | | | | | | | | | + + + + + + + | | | | | active | | | | | | | | | | | | | | | | | | | | | | | | | | | | | | | | | | | | | | | | | | | | | warfarin | | | | | | | 1 mg | | | | | | | tablet | | | | | | | | | | | | | | | | | | | | | | | | | | | | | | | | | | | | | | | | | | | | | | | | | | | | | | | | | | | | | | | | | | | | | | | | | | | | + + + + + + + | | | | | completed | | | | | | | | | | | | | 05/22/201 | | | | | | | 9 | | | | | | | | | | | | | | | | | | | | | | | | | levofloxa | | | | | | | maryann 500 | | | | | | | mg tablet | | | | | | | | | | | | | | | | | | | | | | | | | | | | | | | | | | | | | | | | | | | | | | | | | | | | | | | | | | | | | | | | | | | | | | | | | | | | + + + + + + + | | | | | active | | | | | | | | | | | | | | | | | | | | | | | | | | | | | | | | | | | | | | | | | | | | | zolpidem | | | | | | | 10 mg | | | | | | | tablet | | | | | | | | | | | | | | | | | | | | | | | | | | | | | | | | | | | | | | | | | | | | | | | | | | | | | | | | | | | | | | | | | | | | | | | | | | | | + + + + + + + | | | | | active | | | | | | | | | | | | | | | | | | | | | | | | | | | | | | | | | | | | | | | | | | | | | ondansetr | | | | | | | on 4 mg | | | | | | | disintegr | | | | | | | ating | | | | | | | tablet | | | | | | | | | | | | | | | | | | | | | | | | | | | | | | | | | | | | | | | | | | | | | | | | | | | | | | | | | | | | | | | | | | | | | | | | | | | | + + + + + + + | | | | | active | | | | | | | | | | | | | | | | | | | | | | | | | | | | | | | | | | | | | | | | | | | | | losartan | | | | | | | 100 mg | | | | | | | tablet | | | | | | | | | | | | | | | | | | | | | | | | | | | | | | | | | | | | | | | | | | | | | | | | | | | | | | | | | | | | | | | | | | | | | | | | | | | | + + + + + + + | | | | | active | | | | | | | | | | | | | | | | | | | | | | | | | | | | | | | | | | | | | | | | | | | | | fluticaso | | | | | | | ne | | | | | | | propionat | | | | | | | e 50 | | | | | | | mcg/actua | | | | | | | tion | | | | | | | nasal | | | | | | | spray,pete | | | | | | | pension | | | | | | | | | | | | | | | | | | | | | | | | | | | | | | | | | | | | | | | | | | | | | | | | | | | | | | | | | | | | | | | | | | | | | | | | | | | | + + + + + + + | | | | | completed | | | | | | | | | | | | | 05/22/201 | | | | | | | 9 | | | | | | | | | | | | | | | | | | | | | | | | | amoxicill | | | | | | | in 875 | | | | | | | mg-potass | | | | | | | ium | | | | | | | clavulana | | | | | | | te 125 mg | | | | | | | tablet | | | | | | | | | | | | | | | | | | | | | | | | | | | | | | | | | | | | | | | | | | | | | | | | | | | | | | | | | | | | | | | | | | | | | | | | | | | | + + + + + + + | | | | | active | | | | | | | | | | | | | | | | | | | | | | | | | | | | | | | | | | | | | | | | | | | | | nitrofura | | | | | | | ntoin | | | | | | | monohydra | | | | | | | te/macroc | | | | | | | rystals | | | | | | | 100 mg | | | | | | | capsule | | | | | | | | | | | | | | | | | | | | | | | | | | | | | | | | | | | | | | | | | | | | | | | | | | | | | | | | | | | | | | | | | | | | | | | | | | | | + + + + + + + | | | | | active | | | | | | | | | | | | | | | | | | | | | | | | | | | | | | | | | | | | | | | | | | | | | diclofena | | | | | | | c 1 % | | | | | | | topical | | | | | | | gel | | | | | | | | | | | | | | | | | | | | | | | | | | | | | | | | | | | | | | | | | | | | | | | | | | | | | | | | | | | | | | | | | | | | | | | | | | | | + + + + + + + | | | | | active | | | | | | | | | | | | | | | | | | | | | | | | | | | | | | | | | | | | | | | | | | | | | Shingrix | | | | | | | (PF) 50 | | | | | | | mcg/0.5 | | | | | | | mL | | | | | | | intramusc | | | | | | | ular | | | | | | | suspensio | | | | | | | n, kit | | | | | | | | | | | | | | | | | | | | | | | | | | | | | | | | | | | | | | | | | | | | | | | | | | | | | | | | | | | | | | | | | | | | | | | | | | | | + + + + + + + History of Present Illness None recorded. Physical Exam + + + | | | | | | | | | | | | + + + | | None recorded. | | Notes: | | | | | | | | + + + Review of Systems None recorded. Vitals None Recorded Social History + + + | | Never Smoker (Never) | | Smoking Status | | | | | | | | + + + | Sex | Unknown | | | | + + + Functional Status + + + | | Yes | | Able to Care for Self | | | | | | | | + + + Mental Status None recorded. Family History + + + + + + + | Relations | Descripti | Onset Age | of | Resolved | Notes | | hip | on | | this Age | Age | | | | | | | | | | | | | | | | | | | | | | | | | | | | | | + + + + + + + | Brother | Hyperchol | | | | | | | esterolem | | | | | | | ia | | | | | | | | | | | | | | | | | | | | | | | | | | | | | | | | | + + + + + + + | Mother | Hyperchol | | | | | | | esterolem | | | | | | | ia | | | | | | | | | | | | | | | | | | | | | | | | | | | | | | | | | + + + + + + + | Father | Hyperchol | | | | | | | esterolem | | | | | | | ia | | | | | | | | | | | | | | | | | | | | | | | | | | | | | | | | | + + + + + + + Medical History + + + | Condition | Response | | | | + + + | Seizures/Epilepsy | N | | | | + + + | Migraines | N | | | | + + + | Multiple Sclerosis | N | | | | + + + | Substance Abuse | N | | | | + + + | Bleeding Disorder | N | | | | + + + | MRSA - Chronic Infection | N | | | | + + + | HIV or AIDS | N | | | | + + + | Hernia | N | | | | + + + | Urinary Tract Infection | Y | | | | + + + | Gastric Reflux | N | | | | + + + | Tuberculosis | N | | | | + + + | Anxiety Disorder | Y | | | | + + + | Leg cramps | N | | | | + + + | Back Pain | N | | | | + + + | Asthma | N | | | | + + + | Circulation Problems | N | | | | + + + | Leg pain | N | | | | + + + | Stroke | Y | | | | + + + | Diabetes | N | | | | + + + | RSV | N | | | | + + + | Insomnia | Y | | | | + + + | Swelling of Ankles, Feet or Hands | N | | | | | | | + + + | Peptic Ulcer (stomach or duodenal) | N | | | | | | | + + + | Pulmonary Embolism | N | | | | + + + | Cancer | N | | | | + + + | Sore muscles / joints | N | | | | + + + | Headache | Y | | | | + + + | Coronary Artery Disease | N | | | | + + + | Thyroid Problems | N | | | | + + + | Heart Murmur | N | | | | + + + | Good Pastures | N | | | | + + + | Heart Attack ([place]) | N | | | | + + + | Hepatitis | N | | | | + + + | Difficulty Walking | N | | | | + + + | Heart Disease | N | | | | + + + | Muscle Pain | N | | | | + + + | Complication To Anesthesia | Y | | | | + + + | GERD | N | | | | + + + | Lung Disease | N | | | | + + + | Mental Disorders | N | | | | + + + | Hip pain when walking | Y | | | | + + + | Depression | N | | | | + + + | Shoulder Pain | N | | | | + + + | Warfarin Management | Y | | | | + + + | Dialysis | N | | | | + + + | High Blood Pressure | Y | | | | + + + | Rheumatic Fever | N | | | | + + + | Fibromyalgia | N | | | | + + + | Rheumatoid Arthritis | N | | | | + + + | Arm Pain | N | | | | + + + | Sleep Apnea (CPAP/BPAP/O2) | N | | | | + + + | Chest Pain | N | | | | + + + | Emphysema | N | | | | + + + | Kidney Failure | N | | | | + + + | STOMACH OR GI ULCERS | N | | | | + + + | Addiction | N | | | | + + + | Hypertension | N | | | | + + + | COPD | N | | | | + + + | Kidney Disease | N | | | | + + + | Upper Back Pain | N | | | | + + + | Blood Clots | Y | | | | + + + | High Cholesterol | Y | | | | + + + | Leg or Foot Ulcers | N | | | | + + + | Bladder Problems | Y | | | | + + + | Heart Rhythm Disorder | N | | | | + + + | Osteoporosis | N | | | | + + + | Hiatal Hernia | N | | | | + + + | Arthritis | N | | | | + + + | Liver Disease | N | | | | + + + | Gout | N | | | | + + + | Peripheral Vascular Disease (PVD) | N | | | | | | | + + + | Joint Pain or Swelling | Y | | | | + + + | Heart Problems | N | | | | + + + | Sexually Transmitted Disease | N | | | | + + + | Blood Transfusions | N | | | | + + + | Pacemaker | N | | | | + + + | Heartburn | N | | | | + + + | Muscular Dystrophy | N | | | | + + + Gynecological History No gynecological history recorded. Obstetrics History GPAL: G 0 P 0 0 0 0 Immunizations None recorded. Past Encounters None Reported. Goals Section + + + + + + + | Goal | Descripti | Status | Start | Updated | Updated | | | on | | Date | by | on | | | | | | | | | | | | | | | | | | | | | | | | | | | | | + + + + + + + + + | None Recorded | + + Health Concerns Section + + | Related Observation | + + | None Recorded | + + + + + + + | Concern | Status | Updated by | Updated on | | | | | | | | | | | | | | | | + + + + + | None Recorded | | | | | | | | | | | | | | | | | | | + + + + +"
[2020-12-04 15:00] VITALS: BP 146/78
--- NOTE | 2020-12-04 19:25 | MORECARE ---
CASE MANAGEMENT DISCHARGE SUMMARY PATIENT: ANSLEY KEARNEY UNIT: [id number] ADM DATE: 12/01/20 AGE: 75 : 46 SEX: F ROOM/BED: D.1208 AUTHOR: GINA,DOC PHYSICIAN: REFERRING PHYSICIAN: PABLITO BLANCO DO DATE OF SERVICE: 12/04/20 Discharge Plan Patient Name: ANSLEY KEARNEY Facility: [facility]:[place] : 1945 Planned Disposition: Home with Home Health Anticipated Discharge Date: Discharge Date: Expected LOS: Initial Reviewer: [email or web address] Initial Review Date: 12/01/2020 Generated: 12/04/20 8:24 pm Comments DCP- Discharge Planning Updated by [email or web address]: Danilo Pabon on 12/04/20 6:[address] CM met with patient to complete DC plan and to evaluate needs. Patient lives independently with Family, her Evans Kearney ([phone]). At discharge, the patient plans to return home and feels this is a safe discharge. CM discussed availability of home health, rehab services, and medical equipment. Patient declined SNF and IPR. Patient stated that she has a walker, elevated toilet seat, and her shower has a bench area. Patient stated that she would like a bedside Commode. Patient's choice is [employer] [facility] for DME. Patient stated that she cannot participate in outpatient PT/OT due to transportation issues. Patient stated that her is not in good health and she is unsure if he will be able to reliably transport her to therapy when needed. [facility] chose [facility] for [facility]/PT. JEAN signed and placed on chart. Patient voiced no other needs at this time and is satisfied with DC plan. Late entry for 1839, at bedside and appears in good health. Patient is on Oxygen. Patient stated that she does not believe she will need oxygen. CM explained that a "walk test" may be needed before she leaves to determine if Oxygen will be needed and a choice for oxygen DME will have to be made. Patient appears somewhat weakened. PT eval recommends HHS vs Rehab. Rehab services declined by patient, however a revisit to this topic may be needed. Spoke with Danilo [facility] and a bedside commode will be delivered in the morning. Spoke with Alla [facility]. Alla stated that SOC will be determined after clinicals are evaluated in the morning. DC IMM delivered, explained, signed by the patient, and placed in chart. Signed form also left with the patient. CM will continue to follow and will assist as needed with dc plans/needs. External Providers External Provider: [facility] Next Contact Date: Service Request Date: Service Type: Resolution: Reviewer: Comments: Coverage Notice Reviewer: [email or web address] Celsa Pabon Notice Issued Date-Time: 12/04/2020 16:08 Notice Type: IM Discharge Notice Notice Delivered To: Patient Relationship to Patient: Self Insights Manager Name: Delivery Method: HAND - Hand Delivered Vickie Days: Prior Verbal Notification: Recipient Understood Notice: Yes Recipient Signature: Yes Med Rec Note Co-signed by Attending: Coverage Notice Comment: DC IMM delivered, explained, signed by the patient, and placed in chart. Patient Name: ANSLEY KEARNEY Page [id number] at 1925 All edits/amendments must be made on the electronic document DICTATION DATE: 12/04/201923 RESOURCE CONSERVATIONIST: DIANE 12/04/201923 RPT#: [id number] DC DATE: STATUS: ADM IN [facility] [address] [place] [address] END OF REPORT
--- NOTE | 2020-12-04 19:31 | MORECARE ---
CASE MANAGEMENT DISCHARGE SUMMARY PATIENT: ANSLEY KEARNEY UNIT: [id number] ADM DATE: 12/01/20 AGE: 75 : 46 SEX: F ROOM/BED: D.1208 AUTHOR: GINA,DOC PHYSICIAN: REFERRING PHYSICIAN: PABLITO BLANCO DO DATE OF SERVICE: 12/04/20 Discharge Plan Patient Name: ANSLEY KEARNEY Facility: [facility]:[place] : 1945 Planned Disposition: Home with Home Health Anticipated Discharge Date: Discharge Date: Expected LOS: Initial Reviewer: [id number] Initial Review Date: 12/01/2020 Generated: 12/04/20 8:30 pm Comments DCP- Discharge Planning Updated by [email or web address]: Danilo Pabon on 12/04/20 6:[address] CM met with patient to complete DC plan and to evaluate needs. Patient lives independently with Family, her Evans Kearney ([phone]). At discharge, the patient plans to return home and feels this is a safe discharge. CM discussed availability of home health, rehab services, and medical equipment. Patient declined SNF and IPR. Patient stated that she has a walker, elevated toilet seat, and her shower has a bench area. Patient stated that she would like a bedside Commode. Patient's choice is [facility] for DME. Patient stated that she cannot participate in outpatient PT/OT due to transportation issues. Patient stated that her is not in good health and she is unsure if he will be able to reliably transport her to therapy when needed. Patient chose [facility] for [facility]/PT. JEAN signed and placed on chart. Patient voiced no other needs at this time and is satisfied with DC plan. Late entry for 1839, at bedside and appears in good health. Patient is on Oxygen. Patient stated that she does not believe she will need oxygen. CM explained that a "walk test" may be needed before she leaves to determine if Oxygen will be needed and a choice for oxygen DME will have to be made. Patient appears somewhat weakened. PT eval recommends HHS vs Rehab. Rehab services declined by patient, however a revisit to this topic may be needed. Spoke with Danilo of [facility] and a bedside commode will be delivered in the morning. Spoke with Alla of [facility]. Alla stated that SOC will be determined after clinicals are evaluated in the morning. DC IMM delivered, explained, signed by the patient, and placed in chart. Signed form also left with the patient. CM will continue to follow and will assist as needed with dc plans/needs. DCPIA - Discharge Planning Initial Assessment Updated by SHIVANI: Danilo Pabon on 12/04/20 7:26 pm * Is the patient Alert and Oriented? Yes * How many steps to enter\\exit or inside your home? 1/0 * PCP MARIAM HAWLEY * Pharmacy [facility] * Preadmission Environment Home with Family * ADLs Independent * Equipment Elevated Tol[place] Seat Walker * Other Equipment shower with bench area * List name and contact numbers for known caregivers / representatives who currently or will assist patient after discharge: Evans Kearney (spouse) [phone] * Verbal permission to speak to the caregivers and representatives has been obtained from the patient. Yes * Community resources currently utilized None * Please name any agencies selected above. n/a * Additional services required to return to the preadmission environment? Yes * Can the patient safely return to the preadmission environment? Yes * Has this patient been hospitalized within the prior 30 days at any hospital? No External Providers External Provider: OTHER-OTHER Next Contact Date: Service Request Date: Service Type: Resolution: Reviewer: Comments: Coverage Notice Reviewer: [email or web address] Celsa Pabon Notice Issued Date-Time: 12/04/2020 16:08 Notice Type: IM Discharge Notice Notice Delivered To: Patient Relationship to Patient: Self Internet E Commerce Specialist Name: Delivery Method: HAND - Hand Delivered Vickie Days: Prior Verbal Notification: Recipient Understood Notice: Yes Recipient Signature: Yes Med Rec Note Co-signed by Attending: Coverage Notice Comment: DC IMM delivered, explained, signed by the patient, and placed in chart. Reviewer: [email or web address] Celsa Pabon Notice Issued Date-Time: 12/04/2020 16:08 Notice Type: Patient Choice Letter Notice Delivered To: Patient Relationship to Patient: Self Internet E Commerce Specialist Name: Delivery Method: HAND - Hand Delivered Vickie Days: Prior Verbal Notification: Recipient Understood Notice: Yes Recipient Signature: Yes Med Rec Note Co-signed by Attending: Coverage Notice Comment: [facility] any home health in [facility] - [facility] Last DP export: 12/04/20 6:25 pm Patient Name: ANSLEY KEARNEY Page [phone] at 193 All edits/amendments must be made on the electronic document DICTATION DATE: 12/04/201930 EMERGENCY REGISTRAR: DIANE 12/04/201930 RPT#: [id number] DC DATE: STATUS: ADM IN [facility] [address] [place] [address] END OF REPORT
[2020-12-04 20:24] VITALS: BP 125/66
--- NOTE | 2020-12-04 20:25 | NUR ---
Assumed care of pt after rounds/report. Pt A&OX4 and verbalizes wants/needs clearly without difficulty or hesitation. Pt assisted with purewick placement. IV infusing per order. Resting in bed at this time.
[2020-12-05 00:05] VITALS: BP 114/56
[2020-12-05 04:20] VITALS: BP 136/55
--- NOTE | 2020-12-05 06:34 | NUR ---
Pt is currently resting in bed. IV infusing per order. No c/o pain after intial PRN interventions in early night.
[2020-12-05 08:00] VITALS: BP 116/62
[2020-12-05 09:12] LABS: BASOPHILS 0.3 % (0-2); EOSINOPHILS 0.9 % (0-7); HEMATOCRIT 34.3 % (36.0-48.0); HEMOGLOBIN 11.2 g/dL (12-16); IMMATURE GRANULOCYTES 0.4 % (0-5); LYMPHOCYTE ABS# 1.87 10x3/uL (1.18-3.74); LYMPHOCYTES 16.5 % (15-50); MCH 30.1 pg (26.0-34.0); MCHC 32.7 g/dL (31.0-37.0); MCV 92.2 fL (80.0-100.0); MEAN PLATELET VOLUME 9.8 fL (7.4-10.4); MONOCYTES 12.2 % (2-11); NEUTROPHIL ABS# 7.89 10x3/uL (1.56-6.13); NEUTROPHILS 69.7 % (40-80); PLATELET COUNT 269 10x3/uL (130-400); RBC 3.72 10x6/uL (4.00-5.40); RDW 14.1 % (11.5-14.5); WBC 11.3 10x3/uL (4.8-10.8)
[2020-12-05 09:31] LABS: CALCIUM 8.2 mg/dL (8.5-10.1); CHLORIDE - SERUM 100 mmol/L (98-107); CREATININE - SERUM 0.5 mg/dL (0.6-1.3); GLUCOSE 130 mg/dL (74-106); MAGNESIUM - SERUM 2.1 mg/dL (1.8-2.4); SODIUM 135 mmol/L (136-145); eGFR NON AFRICAN AMERICAN > 90 mL/min (90-120)
[2020-12-05 09:35] LABS: CALC OSMOLALITY 270 mosm/kg (275-300); POTASSIUM - SERUM 3.3 mmol/L (3.5-5.1); UREA NITROGEN 9 mg/dL (7-18)
[2020-12-05 12:11] VITALS: BP 117/59
--- NOTE | 2020-12-05 15:06 | NUR ---
REHAB PRESCREENING Rehab referral received and chart reviewed. Ms. Murphy is a good candidate for acute inpatient rehab. We will plan to admit her if she is willing to come when her physicians feel she is appropriate for discharge. Thank you for this referral! Frances Og, [facility]
--- NOTE | 2020-12-05 15:19 | NUR ---
WALKED 116 FEET WITH WALKER STOPPED 3 TIMES TO STAND AND REST MIN ASSIT
--- NOTE | 2020-12-05 15:37 | NUR ---
PT IN BED RESTING WITH EYES CLOSED
--- NOTE | 2020-12-05 20:00 | NUR ---
ALERT RESTING IN BED, DENIES PAIN OR NEEDS, SEE SHIFT ASSESSMENT, OTHRO BP DONE LYING 113/48, SITTING 124/58 STANDING 117/53, REPORTS FEELING FUNNY OR LIGHT HEADED WHEN SITTING UP ON SIDE OF BED BUT REPORTS BETTER AFTER STANDING
[2020-12-05 20:25] VITALS: BP 113/48
[2020-12-06 04:30] VITALS: BP 109/54
[2020-12-06 07:47] VITALS: BP 107/49
[2020-12-06 07:49] LABS: BASOPHILS 0.2 % (0-2); EOSINOPHILS 1.1 % (0-7); HEMATOCRIT 30.2 % (36.0-48.0); IMMATURE GRANULOCYTES 0.3 % (0-5); LYMPHOCYTE ABS# 1.99 10x3/uL (1.18-3.74); LYMPHOCYTES 20.1 % (15-50); MCH 30.3 pg (26.0-34.0); MCHC 33.1 g/dL (31.0-37.0); MCV 91.5 fL (80.0-100.0); MEAN PLATELET VOLUME 9.5 fL (7.4-10.4); NEUTROPHIL ABS# 6.66 10x3/uL (1.56-6.13); NEUTROPHILS 67.3 % (40-80); PLATELET COUNT 246 10x3/uL (130-400); RDW 14.1 % (11.5-14.5); WBC 9.9 10x3/uL (4.8-10.8)
[2020-12-06] MEDS ORDERED: ELIQUIS2.5 MG PO (08:19)
[2020-12-06] MEDS ORDERED: HYDROCODON-ACE1 EA10 PO (08:19)
[2020-12-06 08:25] LABS: CALC OSMOLALITY 275 mosm/kg (275-300); CARBON DIOXIDE 32.4 mmol/L (21.0-32.0); CHLORIDE - SERUM 103 mmol/L (98-107); CREATININE - SERUM 0.5 mg/dL (0.6-1.3); GLUCOSE 105 mg/dL (74-106); MAGNESIUM - SERUM 2.3 mg/dL (1.8-2.4); POTASSIUM - SERUM 3.2 mmol/L (3.5-5.1); SODIUM 138 mmol/L (136-145); eGFR NON AFRICAN AMERICAN > 90 mL/min (90-120)
[2020-12-06 08:28] LABS: UREA NITROGEN 12 mg/dL (7-18)
--- NOTE | 2020-12-06 12:32 | NUR ---
REPORT CALLED TO GABINO LUI RN ON REHAB. ALL QUESTIONS ANSWERED.
--- NOTE | 2020-12-06 13:01 | NUR ---
Nutrition Follow-up: POD 3 R HEATHER. Appetite improving. Pt reports that she has been having nausea but denies any this AM. -BM; +flatus. Noted plans to d/c to IP rehab. Diet: Regular No PO intake recorded No new wt; last wt: 160# (12/03) Labs noted: K+ 3.2, Ca 8.0 Meds noted: SenNataliya case, 1/2NS @ 50, electrolyte protocol -Encourage PO intake and honor food preferences. -RD will follow up within 4-5 days if pt still admitted.
--- NOTE | 2020-12-06 15:05 | NUR ---
DISCHARGED TO REHAB AT THIS TIME. DISCHARGE INSTRUCTIONS GIVEN BOTH VERBALLY AND WRITTEN. ALL QUESTIONS ANSWERED. ALL BELONGINGS WITH PATIENT.
--- NOTE | 2020-12-07 10:05 | MORECARE ---
CASE MANAGEMENT DISCHARGE SUMMARY PATIENT: ANSLEY KEARNEY UNIT: [id number] ADM DATE: 12/01/20 AGE: 75 : 46 SEX: F ROOM/BED: D.1208 AUTHOR: GINA,DOC PHYSICIAN: REFERRING PHYSICIAN: PABLITO BLANCO DO DATE OF SERVICE: 12/07/20 Discharge Plan Patient Name: ANSLEY KEARNEY Facility: [facility]:[place] : 1945 Planned Disposition: Home with Home Health Anticipated Discharge Date: Discharge Date: 12/06/2020 Expected LOS: Initial Reviewer: [email or web address] Initial Review Date: 12/01/2020 Generated: 12/07/20 11:05 am Comments DCP- Discharge Planning Updated by [email or web address]: Danilo Pabon on 12/04/20 6:[address] CM met with patient to complete DC plan and to evaluate needs. Patient lives independently with Family, her Evans Kearney ([phone]). At discharge, the patient plans to return home and feels this is a safe discharge. CM discussed availability of home health, rehab services, and medical equipment. Patient declined SNF and IPR. Patient stated that she has a walker, elevated toilet seat, and her shower has a bench area. Patient stated that she would like a bedside Commode. Patient's choice is [facility] for DME. Patient stated that she cannot participate in outpatient PT/OT due to transportation issues. Patient stated that her is not in good health and she is unsure if he will be able to reliably transport her to therapy when needed. Patient chose [facility] for [facility]/PT. JEAN signed and placed on chart. Patient voiced no other needs at this time and is satisfied with DC plan. Late entry for 1839, at bedside and appears in good health. Patient is on Oxygen. Patient stated that she does not believe she will need oxygen. CM explained that a "walk test" may be needed before she leaves to determine if Oxygen will be needed and a choice for oxygen DME will have to be made. Patient appears somewhat weakened. PT eval recommends HHS vs Rehab. Rehab services declined by patient, however a revisit to this topic may be needed. Spoke with Danilo of [facility] and a bedside commode will be delivered in the morning. Spoke with Alla of [facility]. Alla stated that SOC will be determined after clinicals are evaluated in the morning. DC IMM delivered, explained, signed by the patient, and placed in chart. Signed form also left with the patient. CM will continue to follow and will assist as needed with dc plans/needs. DCPIA - Discharge Planning Initial Assessment Updated by SHIVANI: Danilo Pabon on 12/04/20 7:26 pm * Is the patient Alert and Oriented? Yes * How many steps to enter\\exit or inside your home? 1/0 * PCP MARIAM HAWLEY * Pharmacy [facility] * Preadmission Environment Home with Family * ADLs Independent * Equipment Elevated [place] Seat Walker * Other Equipment shower with bench area * List name and contact numbers for known caregivers / representatives who currently or will assist patient after discharge: Evans Kearney (spouse) [phone] * Verbal permission to speak to the caregivers and representatives has been obtained from the patient. Yes * Community resources currently utilized None * Please name any agencies selected above. n/a * Additional services required to return to the preadmission environment? Yes * Can the patient safely return to the preadmission environment? Yes * Has this patient been hospitalized within the prior 30 days at any hospital? No Coverage Notice Reviewer: [id number] Pabon Notice Issued Date-Time: 12/04/2020 16:08 Notice Type: IM Discharge Notice Notice Delivered To: Patient Relationship to Patient: Self Blanket Weaver Name: Delivery Method: HAND - Hand Delivered Vickie Days: Prior Verbal Notification: Recipient Understood Notice: Yes Recipient Signature: Yes Med Rec Note Co-signed by Attending: Coverage Notice Comment: DC IMM delivered, explained, signed by the patient, and placed in chart. Reviewer: [email or web address] Celsa Pabon Notice Issued Date-Time: 12/04/2020 16:08 Notice Type: Patient Choice Letter Notice Delivered To: Patient Relationship to Patient: Self Blanket Weaver Name: Delivery Method: HAND - Hand Delivered Vickie Days: Prior Verbal Notification: Recipient Understood Notice: Yes Recipient Signature: Yes Med Rec Note Co-signed by Attending: Coverage Notice Comment: [facility] any home health in [facility] Last DP export: 12/04/20 6:31 pm Patient Name: ANSLEY KEARNEY Page [phone] at 1005 All edits/amendments must be made on the electronic document DICTATION DATE: 12/07/20 1005 MULTIMEDIA COORDINATOR: DIANE 12/07/20 1005 RPT#: [id number] DC DATE:12/06/20 STATUS: DIS IN [facility] [address] [place] [address] END OF REPORT
== END 2020-12-06 15:06 | DRG 522 ==
LOC: D.ER 07:26 → D.M3 10:13
PROVIDERS: Emergency Medicine; Family Medicine; Orthopaedic Surgery; ADMIT Family Medicine; ATTEND Family Medicine
PROC: 0SR90JZ Replacement of Right Hip Joint with Synthetic Substitute, Open Approach (ICD-10-PCS; principal; 2020-12-03 12:00)
DX: S72.001A Fracture of unspecified part of neck of right femur, initial encounter for closed fracture (principal); W19.XXXA Unspecified fall, initial encounter; I10 Essential (primary) hypertension; Z86.73 Personal history of transient ischemic attack (TIA), and cerebral infarction without residual deficits

== ENCOUNTER 2020-12-06 14:02 | Inpatient (IN) | payer MEDICARE, OTHER ==
[~2020-12-06] VITALS: Ht 162.6 cm; Wt 72.6 kg
[~2020-12-06 14:02] MED LIST changes: +ACETAMINOPHEN325 MG PO; +ELIQUIS2.5 MG PO; +HYDROCODON-ACE1 EA10 PO
--- NOTE | 2020-12-06 15:47 | NUR ---
PATIENT ADMITTED TO REHAB FROM ACUTE FLOOR. HER PCP IS DR. HAWLEY . AT [facility] SHE PLANS ON DISCHARGING HOME WITH [address] DME AT HOME IS A WALKER AND SHOWER BENCH. WILL CONTINUE TO FOLLOW WITH PATIENT.
[2020-12-06 17:49] VITALS: BP 121/59; BMI 27.5
[2020-12-06 20:28] VITALS: BP 117/66
--- NOTE | 2020-12-06 21:00 | NUR ---
TOOK PT HER NIGHTTIME MEDICATIONS. SHE REFUSED THE BISOPROLOL/HCTZ BECAUSE SHE FEELS THIS MAY BE CONTRIBUTING TO HER FEELING DIZZY AND NAUSEATED WHEN AMBULATING. SHE ALSO REFUSED THE AMBIEN AND REQUESTED MELATONIN. ORDER RECEIVED FOR MELATONIN. HER BLOOD PRESSURE IS 117/66, HEART RATE 87. SHE REPORTS HAVING A SMALL BOWEL MOVEMENT TODAY. LET HER KNOW SHE HAS MIRALAX ORDERED NEEDED AND SHE STATES SHE WANTS TO WAIT UNTIL THE MORNING SO SHE DOES NOT HAVE ANY ACCIDENTS THROUGH THE NIGHT. SHE HAS A BRIEF ON FOR STRESS INCONTINENCE. SHE HAS A BEDSIDE COMMODE NEXT TO HER BED. SHE HAS A DRESSING COVERING THE INCISION TO HER RIGHT HIP. IT IS CLEAN, DRY AND INTACT. SHE DENIES NEEDS AT THIS TIME. HER BED IS LOW, BED ALARM ON AND CALL LIGHT IS WITHIN REACH.
[2020-12-07 07:44] LABS: CALC OSMOLALITY 277 mosm/kg (275-300); CALCIUM 8.6 mg/dL (8.5-10.1); CARBON DIOXIDE 32.8 mmol/L (21.0-32.0); CHLORIDE - SERUM 104 mmol/L (98-107); CREATININE - SERUM 0.5 mg/dL (0.6-1.3); GLUCOSE 115 mg/dL (74-106); POTASSIUM - SERUM 3.2 mmol/L (3.5-5.1); SODIUM 138 mmol/L (136-145); UREA NITROGEN 14 mg/dL (7-18); eGFR NON AFRICAN AMERICAN > 90 mL/min (90-120)
[2020-12-07 07:56] LABS: BASOPHILS 0.3 % (0-2); HEMATOCRIT 29.8 % (36.0-48.0); HEMOGLOBIN 9.8 g/dL (12-16); IMMATURE GRANULOCYTES 0.3 % (0-5); LYMPHOCYTE ABS# 1.95 10x3/uL (1.18-3.74); MCH 30.2 pg (26.0-34.0); MCHC 32.9 g/dL (31.0-37.0); MCV 91.7 fL (80.0-100.0); MEAN PLATELET VOLUME 9.6 fL (7.4-10.4); MONOCYTES 9.9 % (2-11); NEUTROPHIL ABS# 7.03 10x3/uL (1.56-6.13); NEUTROPHILS 68.5 % (40-80); PLATELET COUNT 284 10x3/uL (130-400); RBC 3.25 10x6/uL (4.00-5.40); WBC 10.3 10x3/uL (4.8-10.8)
[2020-12-07 08:00] VITALS: BP 128/58
--- NOTE | 2020-12-07 08:00 | NUR ---
PT RESTING IN BED WITH EYES OPEN CALL LIGHT IN REACH NO PROBLEMS WILL MONITER
--- NOTE | 2020-12-07 18:08 | NUR ---
PT RESTING IN BED WITH EYES OPEN CALL LIGHT IN REACH WILL MONITER
[2020-12-07 19:36] VITALS: BP 119/59
--- NOTE | 2020-12-07 20:00 | NUR ---
PATIENT RECEIVED SITTING UP IN BED WATCHING TV. ASSESSMENT DONE. DRESSING TO RIGHT HIP DRY & INTACT. NO C/O PAIN OR DISTRESS. BED LOW. CALL LIGHT WITHIN REACH. WILL CONTINUE TO MONITOR.
--- NOTE | 2020-12-08 01:18 | NUR ---
I have reviewed this patient and I concur with the Shift Assessment completed by the Licensed Practical Nurse today this shift.
--- NOTE | 2020-12-08 03:55 | NUR ---
PATIENT USED CALL LIGHT FOR ASSIST. PATIENT HAD INCONTINENCE OF URINE IN BRIEF. PATIENT MODERATE ASSIST WITH PANTS ON & OFF. PATIENT BUTTOCKS & PERIAREA CLEANED. BUTT PASTE APPLIED, EXCORIATION TO BUTTOCKS. BED LOW. ALARM ON. CALL LIGHT WITHIN REACH. WILL CONTINUE TO MOMITOR.
--- NOTE | 2020-12-08 07:46 | NUR ---
PATIENT IS ALERT/ORIENT. CALL LIGHT WITHIN REACH. VOICES NO NEEDS AT THIS TIME. WILL CONTINUE WITH PLAN OF CARE
[2020-12-08 10:21] VITALS: BP 116/61
[2020-12-08 12:45] VITALS: Ht 162.6 cm; Wt 72.6 kg
--- NOTE | 2020-12-08 13:40 | NUR ---
PATIENT HELPED TO BATHROOM. STAND BY ASST FOR TRANSFERS
--- NOTE | 2020-12-08 14:53 | NUR ---
I have reviewed this patient and I concur with the Shift Assessment completed by the Licensed Practical Nurse today this shift.
--- NOTE | 2020-12-08 17:45 | NUR ---
OSBALDO AND 7-UP GIVEN PER PATIENT REQUEST FOR CONSTAPATION. PATIENT SITTING UP IN BED TO EAT SUPPER
--- NOTE | 2020-12-08 20:00 | NUR ---
PATIENT RECEIVED LAYING IN BED. ASSESSMENT & VITAL SIGNS DONE. DRESSING TO RIGHT HIP C/D/I. NO C/O PAIN OR DISTRESS. BED LOW. ALARM ON. CALL LIGHT & BEDSIDE TABLE WITHIN REACH. WILL CONTINUE TO MONITOR.
[2020-12-08 20:02] VITALS: BP 139/74
--- NOTE | 2020-12-08 23:27 | NUR ---
PATIENT USED CALL LIGHT FOR ASSIST. PATIENT IN PAIN 7/10 BOTH SHOULDERS & ARMS & RIGHT HIP. PAIN MEDICATION GIVEN. WILL CONTINUE TO MONITOR.
--- NOTE | 2020-12-09 04:57 | NUR ---
PATIENT USED CALL LIGHT FOR ASSIST. PATIENT HAD INCONTINENCE OF URINE. BUTTOCKS & PERIAREA CLEANED, NEW BRIEF ON. CALL LIGHT WITHIN REACH. WILL CONTINUE TO MONITOR.
--- NOTE | 2020-12-09 05:10 | NUR ---
I have reviewed this patient and I concur with the Shift Assessment completed by the Licensed Practical Nurse today this shift.
--- NOTE | 2020-12-09 08:47 | NUR ---
SHE IS ALERT, TALKING, TOOK HER MEDICAITONS WITHOUT ANY PROBLEMS. SHE HAS A DRESSING ON HER RIGHT HIP; CLEAN, DRY AND INTACT. THE CALL LIGHT IS WITHIN EACH.
[2020-12-09 13:28] VITALS: BP 124/61
[2020-12-09 19:00] VITALS: BP 113/59
--- NOTE | 2020-12-09 20:40 | NUR ---
PATIENT RECEIVED SITTING UP IN BED. ASSESSMENT & VITAL SIGNS DONE. DRESSING C/D/I TO RIGHT HIP. BED LOW. ALARM ON. CALL LIGHT & BEDSIDE TABLE WITHIN REACH. WILL CONTINUE TO MONITOR.
--- NOTE | 2020-12-10 00:33 | NUR ---
I have reviewed this patient and I concur with the Shift Assessment completed by the Licensed Practical Nurse today this shift.
--- NOTE | 2020-12-10 02:31 | NUR ---
PATIENT EYES CLOSED. RESPIRATIONS 17 & EVEN. BED LOW. BEDSIDE TABLE & CALL LIGHT WITHIN REACH. WILL CONTINUE TO MONITOR.
--- NOTE | 2020-12-10 07:38 | NUR ---
PT RESTING IN BED WITH EYES OPEN CALL LIGHT IN REACH NO PROBLEMS WILL MONITER
[2020-12-10 07:51] VITALS: BP 148/77
[2020-12-10 09:06] LABS: CALC OSMOLALITY 273 mosm/kg (275-300); CALCIUM 8.9 mg/dL (8.5-10.1); CARBON DIOXIDE 29.7 mmol/L (21.0-32.0); CHLORIDE - SERUM 100 mmol/L (98-107); CREATININE - SERUM 0.6 mg/dL (0.6-1.3); GLUCOSE 117 mg/dL (74-106); POTASSIUM - SERUM 3.4 mmol/L (3.5-5.1); SODIUM 137 mmol/L (136-145); UREA NITROGEN 10 mg/dL (7-18); eGFR NON AFRICAN AMERICAN > 90 mL/min (90-120)
[2020-12-10 09:19] LABS: BASOPHILS 0.4 % (0-2); HEMOGLOBIN 10.3 g/dL (12-16); IMMATURE GRANULOCYTES 0.8 % (0-5); LYMPHOCYTE ABS# 2.19 10x3/uL (1.18-3.74); LYMPHOCYTES 23.5 % (15-50); MCH 30.3 pg (26.0-34.0); MCHC 32.2 g/dL (31.0-37.0); MCV 94.1 fL (80.0-100.0); MEAN PLATELET VOLUME 9.1 fL (7.4-10.4); MONOCYTES 8.7 % (2-11); NEUTROPHIL ABS# 6.02 10x3/uL (1.56-6.13); NEUTROPHILS 64.6 % (40-80); RDW 14.3 % (11.5-14.5); WBC 9.3 10x3/uL (4.8-10.8)
[2020-12-10 09:23] LABS: PLATELET COUNT 429 10x3/uL (130-400)
[2020-12-10 20:00] VITALS: BP 110/62
--- NOTE | 2020-12-11 02:19 | NUR ---
PT RESTING WITH EYES CLOSED. RESPIRATIONS EVEN AND UNLABORED. HER BED IS LOW, BED ALARM ON AND CALL LIGHT IS WITHIN REACH.
--- NOTE | 2020-12-11 07:27 | NUR ---
PT RESTING IN BED WITH EYES OPEN CALL LIGHT IN REACH WILL MONITER
[2020-12-11 08:06] VITALS: BP 104/59
--- NOTE | 2020-12-11 14:32 | NUR ---
Nutrition Follow-up: Diet: Regular PO intake: ~64% average x last 9 meals (100% x 3 meals yesterday). She ate only 20% of her breakfast this AM. She tells me that she is nauseated and that she "can't get awake." States that he drank 1 chocolate Boost last night and one this morning. She would like to get chocolate Boost on meal trays. Last BM: none recorded since admit Wt: 160# (12/08/20) Meds noted: mary hays (prn) Labs noted: K 3.4(L), Glu 117(H) Recommend continue current diet. Will add chocolate Boost with meals. RD will follow-up 12/14/20.
--- NOTE | 2020-12-11 18:40 | NUR ---
PT RESTING IN BED WITH EYES OPEN CALL LIGHT IN REACH WILL MONITER
--- NOTE | 2020-12-11 19:15 | NUR ---
RECIEVED PT SITTING UP IN BED WATCHING TV. CL IN REACH. DENIES NEEDS AT THIS TIME. BED IN LOW SIDE RAILS X2. A/O X4. LUNGS CLEAR. BOWEL ACTIVE X4. BED ALARM ON. RESP EVEN AND UNLABORED. CPOC
[2020-12-11 20:15] VITALS: BP 137/67
--- NOTE | 2020-12-12 01:57 | NUR ---
I have reviewed this patient and I concur with the Shift Assessment completed by the Licensed Practical Nurse today this shift.
[2020-12-12 06:20] VITALS: BP 128/75
[2020-12-12 07:48] LABS: CALC OSMOLALITY 268 mosm/kg (275-300); CALCIUM 8.9 mg/dL (8.5-10.1); CHLORIDE - SERUM 101 mmol/L (98-107); CREATININE - SERUM 0.6 mg/dL (0.6-1.3); GLUCOSE 118 mg/dL (74-106); POTASSIUM - SERUM 3.8 mmol/L (3.5-5.1); SODIUM 135 mmol/L (136-145); UREA NITROGEN 8 mg/dL (7-18); eGFR NON AFRICAN AMERICAN > 90 mL/min (90-120)
[2020-12-12 07:49] VITALS: BP 124/69
[2020-12-12 09:11] LABS: BASOPHILS 0.2 % (0-2); HEMATOCRIT 32.1 % (36.0-48.0); HEMOGLOBIN 10.2 g/dL (12-16); IMMATURE GRANULOCYTES 0.4 % (0-5); LYMPHOCYTE ABS# 1.66 10x3/uL (1.18-3.74); LYMPHOCYTES 14.1 % (15-50); MCH 29.9 pg (26.0-34.0); MCHC 31.8 g/dL (31.0-37.0); MCV 94.1 fL (80.0-100.0); MONOCYTES 7.8 % (2-11); NEUTROPHIL ABS# 8.87 10x3/uL (1.56-6.13); NEUTROPHILS 75.5 % (40-80); PLATELET COUNT 441 10x3/uL (130-400); RBC 3.41 10x6/uL (4.00-5.40); RDW 14.8 % (11.5-14.5); WBC 11.8 10x3/uL (4.8-10.8)
--- NOTE | 2020-12-12 13:18 | NUR ---
CARE TEAM MEETING: PATIENT IS PROGRESSING IN THERAPY. HER TENATIVE DC DATE IS 12/18/20. WILL CONTINUE TO FOLLOW WITH PATIENT.
--- NOTE | 2020-12-12 19:14 | NUR ---
RECIEVED PT SITTING UP IN BED VISITING WITH FAMILY MEMBER. CL IN REACH. DENIES NEEDS AT THIS TIME. BED IN LOW SIDE RAILS X2. LUNGS CLEAR. BOWEL ACTIVE X4. A/O X4. RESP EVEN AND UNLABORED. RIGHT HIP DRSG INTACT. CPOC
[2020-12-12 20:35] VITALS: BP 110/61
[2020-12-13 06:26] VITALS: BP 120/64
--- NOTE | 2020-12-13 08:37 | NUR ---
SHE IS AWAKE, EATING BREAKFAST. SHE HAS A DRESSING ON THE RIGHT HIP. THE CALL LIGHT IS WITHIN REACH AND THE BED ALARM IS ON.
[2020-12-13 20:00] VITALS: BP 104/50
--- NOTE | 2020-12-13 20:00 | NUR ---
PT ASKING TO BE TURNED. ASSISTED HER TO HER LEFT SIDE. SHE HAS REDNESS TO HER BUTTOCKS. ENCOURAGED HER TO TO AVOID LAYING FLAT ON HER BACK FOR A PROLONGED PERIOD OF TIME. EXPLAINED THE IMPORTANCE OF EVEN THE SMALLEST OF POSITION CHANGES TO DECREASE PRESSURE WOUNDS. PLACED A BORDER DRESSING OVER HER RIGHT HIP INCISION. PLACED AN ICE PACK OVER HER INCISION AT HER REQUEST. SHE REPORTS THIS IS HELPING THE PAIN. APPLIED BUTTPASTE TO HER BUTTOCKS. ENCOURAGED HER TO CALL FOR HELP AND I COULD ASSIST HER TO THE RESTROOM TO URINATE INSTEAD OF URINATING IN HER BRIEF. SHE VERBALIZED UNDERSTANDING. HER BRIEF IS DRY. SHE DENIES FURTHE NEEDS AT THIS TIME. BED IS LOW, CALL LIGHT WITHIN REACH AND BED ALARM ON.
[2020-12-14 06:03] VITALS: BP 101/58
[2020-12-14 07:09] LABS: BASOPHILS 0.3 % (0-2); HEMATOCRIT 30.3 % (36.0-48.0); HEMOGLOBIN 9.6 g/dL (12-16); IMMATURE GRANULOCYTES 0.6 % (0-5); LYMPHOCYTE ABS# 2.46 10x3/uL (1.18-3.74); LYMPHOCYTES 27.5 % (15-50); MCH 29.7 pg (26.0-34.0); MCHC 31.7 g/dL (31.0-37.0); MCV 93.8 fL (80.0-100.0); MEAN PLATELET VOLUME 8.7 fL (7.4-10.4); MONOCYTES 8.2 % (2-11); NEUTROPHIL ABS# 5.39 10x3/uL (1.56-6.13); NEUTROPHILS 60.4 % (40-80); PLATELET COUNT 384 10x3/uL (130-400); RBC 3.23 10x6/uL (4.00-5.40); RDW 14.9 % (11.5-14.5); WBC 8.9 10x3/uL (4.8-10.8)
[2020-12-14 07:20] VITALS: BP 111/60
[2020-12-14 07:23] LABS: CALC OSMOLALITY 274 mosm/kg (275-300); CALCIUM 8.4 mg/dL (8.5-10.1); CARBON DIOXIDE 28.2 mmol/L (21.0-32.0); CHLORIDE - SERUM 104 mmol/L (98-107); CREATININE - SERUM 0.6 mg/dL (0.6-1.3); GLUCOSE 106 mg/dL (74-106); SODIUM 137 mmol/L (136-145); eGFR NON AFRICAN AMERICAN > 90 mL/min (90-120)
[2020-12-14 07:26] LABS: UREA NITROGEN 15 mg/dL (7-18)
--- NOTE | 2020-12-14 07:45 | NUR ---
SHE IS IN BED, SETTIN UP FOR BREAKFAST. SHE HAS A DRESSING TO THE RIGHT HIP; CLEAN, DRY, ADN INTACT. DENIES ANY NEEDS. TOOK HER MEDICAITONS WITHOUT ANY PROBLEMS. THE CALL LIGHT IS WITHIN REACH AND THE BED ALARM IS ON.
--- NOTE | 2020-12-14 13:25 | NUR ---
Nutrition Follow-up: Diet: Regular + Boost with meals PO intake: ~59% average x last 5 meals Last BM: 12/14/20. Wt: 160# (12/08/20) Meds noted: k-dur Labs reviewed. Recommend continue current diet and oral nutrition supplement. RD will follow-up within 7 days.
[2020-12-14 19:52] VITALS: BP 122/62
--- NOTE | 2020-12-14 20:30 | NUR ---
PATIENT RECEIVED SITTING UP IN BED. ASSESSMENT & VITAL SIGNS DONE. NO C/O PAIN OR DISTRESS AT THIS TIME. PATIENT ASSIST INTO BATHROOM. PATIENT HAD BM & VOID. PATIENT WASHED HER HANDS & RETURNED TO LOW BED. ALARM ON. CALL LIGHT & BEDSIDE TABLE WITHIN REACH. WILL CONTINUE TO MONITOR.
--- NOTE | 2020-12-15 02:13 | NUR ---
I have reviewed this patient and I concur with the Shift Assessment completed by the Licensed Practical Nurse today this shift.
--- NOTE | 2020-12-15 03:26 | NUR ---
PT CALLED NEEDING ASSISTANCE TO RESTROOM. ASSISTED TRANSFER FROM BED TO W/C WITH MIN ASSIST. W/C TO TOILET SBA. PT STATED SHE NEEDED ASSISTANCE CHANGING BRIEF D/T URINATING IN BRIEF EARLIER ON IN NIGHT, PT DID NOT CALL FOR ASSIST AT THAT TIME. MIN ASSIST CHANGING BRIEF. LARGE VOID/MED FORMED BM (CONTINENT) PT PERFORMED TOILETING HYGIENE INDEPENDENTLY. BUTTPASTE APPLIED. ASSISTED PT BACK TO BED WITH MIN ASSIST. PT DENIES ANY OTHER NEEDS. CALL LIGHT WITHIN REACH. CPOC
--- NOTE | 2020-12-15 03:41 | NUR ---
PATIENT USED CALL LIGHT FOR ASSIST. PATIENT MINIMAL ASSIST IN & OUT OF BED. STANDBY ASSIST ON & OFF COMMODE & WHEELCHAIR. VOID & BM. BRIEF HAD INCONTINENCE URINE. PATIENT CLEANED SELF & NEW BRIEF ON. PATIENT RETURNED TO LOW BED. ALARM ON. BEDSIDE TABLE & CALL LIGHT WITHIN REACH. WILL CONTINUE TO MONITOR.
[2020-12-15 06:29] VITALS: BP 124/66
[2020-12-15 08:00] VITALS: BP 133/56
--- NOTE | 2020-12-15 11:09 | NUR ---
PT RESTING IN BED WITH EYES OPEN CALL LIGHT IN REACH WILL MONITER
--- NOTE | 2020-12-15 17:47 | NUR ---
PT RESTING IN BED WITH EYES OPEN CALL LIGHT IN REACH WILL MONITER
--- NOTE | 2020-12-15 19:26 | NUR ---
PATIENT RECIED SITTING UP IN WHEELCHAIR AT BEDSIDE. ASSESSMENT & VITAL SIGNS DONE. NO C/O PAIN OR DISTRESS. PATIENT TOILETED, VOID ONLY. PATIENT RETURNED TO LOW BED. ALARM ON. CALL LIGHT WITHIN REACH. WILL CONTINUE TO MONITOR.
--- NOTE | 2020-12-15 19:50 | NUR ---
PATIENT USED CALL LIGHT FOR ASSIST. PATIENT PROPELLED IN WHEELCHAIR TO TOILET. VOID ONLY. RETURNED TO LOW BED. BEDSIDE TABLE, WATER, CALL LIGHT WITHIN REACH. ALARM ON. WILL CONTINUE TO MONITOR.
[2020-12-15 20:12] VITALS: BP 119/67
--- NOTE | 2020-12-16 04:15 | NUR ---
I have reviewed this patient and I concur with the Shift Assessment completed by the Licensed Practical Nurse today this shift.
--- NOTE | 2020-12-16 04:40 | NUR ---
PATIENT EYES CLOSED. RESPIRATIONS 19 & EVEN. BED LOW. ALARM ON. BEDSIDE TABLE & CALL LIGHT WITHIN REACH. WILL CONTINUE TO MONITOR.
[2020-12-16 05:59] VITALS: BP 121/61
--- NOTE | 2020-12-16 08:00 | NUR ---
PT RESTING IN BED WITH EYES OPEN CALL LIGHT IN REACH WILL MONITER
--- NOTE | 2020-12-16 18:44 | NUR ---
PT RESTING IN BED WITH EYES OPEN CALL LIGHT IN REACH NO PROBLEMS WILL MONITER
--- NOTE | 2020-12-16 19:08 | NUR ---
PATIENT RECEIVED SITTING UP IN BED WATCHING TV. C/O PAIN LEVEL 5 TO LEFT HIP & LEG. PAIN MEDICATION GIVEN. BED LOW. ALARM ON. CALL LIGHT, SIDETABLE, PHONE WITHIN REACH. WILL CONTINUE TO MONITOR.
[2020-12-16 19:55] VITALS: BP 125/80
--- NOTE | 2020-12-17 01:52 | NUR ---
I have reviewed this patient and I concur with the Shift Assessment completed by the Licensed Practical Nurse today this shift.
--- NOTE | 2020-12-17 02:25 | NUR ---
PATIENT EYES CLOSED. RESPIRAIONS 19 & EVEN. BED LOW. WATER & CALL LIGHT WITHIN REACH. WILL CONTINUE TO MONITOR.
[2020-12-17 06:13] VITALS: BP 131/65
[2020-12-17 06:25] VITALS: BP 129/67
--- NOTE | 2020-12-17 06:25 | NUR ---
PATIENT BP 129/67 PULSE 84. PATIENT REFUSED ZIAC.
[2020-12-17 07:21] VITALS: BP 115/60
[2020-12-17 08:03] LABS: BASOPHILS 0.4 % (0-2); EOSINOPHILS 2.2 % (0-7); HEMATOCRIT 31.3 % (36.0-48.0); IMMATURE GRANULOCYTES 0.4 % (0-5); LYMPHOCYTE ABS# 1.85 10x3/uL (1.18-3.74); LYMPHOCYTES 22.4 % (15-50); MCH 29.9 pg (26.0-34.0); MCHC 31.9 g/dL (31.0-37.0); MCV 93.4 fL (80.0-100.0); MEAN PLATELET VOLUME 9.1 fL (7.4-10.4); MONOCYTES 7.5 % (2-11); NEUTROPHIL ABS# 5.55 10x3/uL (1.56-6.13); NEUTROPHILS 67.1 % (40-80); PLATELET COUNT 395 10x3/uL (130-400); RBC 3.35 10x6/uL (4.00-5.40); WBC 8.3 10x3/uL (4.8-10.8)
--- NOTE | 2020-12-17 08:15 | NUR ---
SHE IS USING THE WHEELCHAIR TO GET TO THE BATHROOM. THE RIGHT HIP HAS THE GLUE INTACT. DENIES ANY PAIN. THE CALL LIGHT IS WITHIN REACH.
[2020-12-17 08:32] LABS: CALC OSMOLALITY 275 mosm/kg (275-300); CALCIUM 8.6 mg/dL (8.5-10.1); CARBON DIOXIDE 27.9 mmol/L (21.0-32.0); CHLORIDE - SERUM 105 mmol/L (98-107); CREATININE - SERUM 0.6 mg/dL (0.6-1.3); GLUCOSE 102 mg/dL (74-106); SODIUM 138 mmol/L (136-145); UREA NITROGEN 12 mg/dL (7-18); eGFR NON AFRICAN AMERICAN > 90 mL/min (90-120)
[2020-12-17] MEDS ORDERED: ULTRAM50 MG PO (08:56)
--- NOTE | 2020-12-17 09:24 | RHP ---
PATIENT: ANSLEY KEARNEY MEDICAL RECORD: [id number] ACCOUNT: [id number] LOCATION:[place] [id number] : 47 ADMISSION DATE: 12/06/20 REHABILITATION HISTORY AND PHYSICAL EXAMINATION POST ADMISSION PHYSICIAN EXAMINATION ADMITTING DIAGNOSIS: Angulated right femoral neck fracture. HISTORY OF PRESENT ILLNESS: The patient is postop day #3 of a patient who suffered from a fall a week ago, had a right hip fracture. Ortho was consulted. The patient had to be put off a little bit because of an elevated INR from warfarin. The patient did well status post therapy. She is having some nausea with some therapy at times. She has been using a rolling walker. She is weightbearing as tolerated on that extremity. Pain meds have been adjusted. She is on DVT prophylaxis, potassium replacement and Eliquis. The patient has had some episode of orthostatic hypotension also. Prior to this fall, she was completely independent with her hospital and use of a single point cane. Currently, she is monitored closely for lab values, cognition, medication adjustments, monitoring her pain control, decreased strength, balance deficits, decreased range of motion, gait disturbance, impaired mobility, dyspnea on exertion, high fall risk and self-care deficits. These are all barriers to her discharge home. COMORBIDITIES: Include anemia, arthritis, hypertension, hypokalemia, incontinence, and nausea. PAST MEDICAL HISTORY: Significant for CVA in the past. She has got a history of diverticular disease, acid reflux, she has got history of anxiety, insomnia. PAST SURGICAL HISTORY: Includes appendectomy. She has had a hip surgery. ALLERGIES: LEVAQUIN, STATINS, FLEXERIL, DICLOFENAC, ERYTHROMYCIN, AND NITROFURANTOIN. CURRENT MEDICATIONS: Include B12 1000 mcg daily, ascorbic acid 1000 mg daily, melatonin 6 mg at bedtime, Eliquis 2.5 mg b.i.d., Ambien 10 mg at bedtime, lorazepam 0.5 mg at bedtime, Flonase nasal spray Joshua 10/6.5 one tab daily, Cozaar 100 mg daily, Battiest 10/325 one tab q.6 hours p.r.n., acetaminophen 650 mg q.6 hours p.r.n., and polyethylene glycol 17 grams in 8 ounces water daily. HABITS: No current alcohol or tobacco use. FAMILY HISTORY: Noncontributory. SOCIAL HISTORY: The patient hopes to return back home and get back to her prior level of functioning. REVIEW OF SYSTEMS: GENERAL: Does complain of weakness and fatigue. HEENT: Denies cold, cough, congestion. CARDIOVASCULAR: She denies any chest pain. PHYSICAL EXAMINATION: VITAL SIGNS: Stable, afebrile. GENERAL: A well-developed female, in no acute distress, alert upon exam. HISTORY AND PHYSICAL [id number] ANSLEY KEARNEY HEENT: Normocephalic and atraumatic. Mucosa moist. NECK: Supple, no lymphadenopathy. LUNGS: Clear at this time. No wheezing or rales. HEART: Regular rate and rhythm. No murmurs, rubs or gallops. ABDOMEN: Soft, benign, nondistended. Positive bowel sounds times 4. EXTREMITIES: No clubbing, cyanosis or edema. Postoperative area looks pretty good. NEUROLOGIC: She is mainly intact. She does have some proximal muscle weakness of her thighs. LABORATORY DATA: White count is 10.3, H&H 9.8 and 29.8, platelet count is noted to be 284. Her sodium is 138, potassium 3.2, BUN and creatinine are 14 and 0.5, and blood sugar is noted to be 115. ASSESSMENT: This is a 75-year-old female patient admitted to the rehab with a working diagnosis of femoral neck fracture. The patient has potential to make improvements. We instituted the following multidisciplinary therapies including, but not limited to physical, occupational, respiratory, speech, nutritional services, prosthetics and orthotics. Given her complex medical condition and risks for more complications, rehabilitation services cannot be provided at a low level of care such as [facility] facility. PLAN: Admit to [facility] for inpatient therapy to include the following disciplines: A. Physical therapy to improve gait, all transfer skills and bed mobility to a modified independent level. B. Occupational therapy to improve activities of daily living. C. Case management to help with discharge planning and placement options. D. Nutrition to assist with nutritional needs. E. Rehabilitation nursing to assist in monitoring the patient's underlying medical conditions and to assist with any type of bowel or bladder management. 1. The patient's current medication and medical care will be continued. 2. Will be placed on standard fall precautions. 3. The patient's estimated length of stay approximately 7-10 days. We will discuss the patient during care team staff meeting this week. TRANSINT:[id number] Voice Confirmation ID: [id number] DOCUMENT ID: [id number] 12/14/2020 Edited pee MILES. GINGER notes whether there has been none or any medical/functional change since admission: - No change since preadmission screen. GINGER attests patient continues to be appropriate for IRF: - Continues to be appropriate. HISTORY AND PHYSICAL [id number] ANSLEY KEARNEY,KAVIN MENESES MD at 0924 CC: [id number] DICTATION DATE: 12/07/20 0832 DIAMOND MOUNTER: 12/07/20 0939 ADM IN [facility] [address] [place] [id number]
--- NOTE | 2020-12-17 14:48 | NUR ---
patient discharging home with family. 12/18/20. [facility] will provide therapy at home. [employer] will deliver a rolling walker to patient. mandi signed, imm served and explained, one given to patient and one filed in chart. compare data reviewed patient voiced understanding. Dr. Lugo 12/21/20 @ 10:30, Dr. Ambrosio 12/31/20 @ 1:20. discharge instructions faxed to pcp, home health and reviewed with patient.
[2020-12-17 20:20] VITALS: BP 129/68
--- NOTE | 2020-12-18 01:11 | NUR ---
I have reviewed this patient and I concur with the Shift Assessment completed by the Licensed Practical Nurse today this shift.
--- NOTE | 2020-12-18 02:12 | NUR ---
PT RESTING WITH EYES CLOSED. RESPIRATIONS EVEN AND UNLABORED. BED IS LOW, BED ALARM ON AND CALL LIGHT WITHIN REACH.
[2020-12-18 07:36] VITALS: BP 110/62
--- NOTE | 2020-12-18 08:38 | NUR ---
SHE IS SETTING IN BED EATING BREAKFAST. HAS THE GLUED TO THE RIGHT HIP. SHE IS DISCHARING TODAY. HER TOOK THE WALKER HOME YESTERDAY, WILL TAKE THE BEDSIDE COMMODE HOME TODAY AT DISCHARGE. PRN GIVEN FOR PAIN. THE CALL LIGHT IS WITHIN REACH.
--- NOTE | 2020-12-18 12:20 | NUR ---
PAPER WORK GONE OVER WITH THE PATIENT, QUESTIONS ANSWERED. WAITING ON HER TO PICK HER UP.
--- NOTE | 2020-12-18 13:06 | NUR ---
TAKEN OUT VIA WHEELCHAIR TO THR FRONT DOOR BY THE TRANSPORTER. BED SIDE COMMODE TAKEN WITH HER.
== END 2020-12-18 13:20 | disposition home health service (06) | DRG 560 ==
LOC: D.REHAB 14:02
PROVIDERS: ADMIT Emergency Medicine; ATTEND Emergency Medicine
DX: S72.001D Fracture of unspecified part of neck of right femur, subsequent encounter for closed fracture with routine healing (principal); J98.11 Atelectasis; W19.XXXD Unspecified fall, subsequent encounter; D64.9 Anemia, unspecified; I10 Essential (primary) hypertension; E87.6 Hypokalemia; M19.90 Unspecified osteoarthritis, unspecified site; R32 Unspecified urinary incontinence; R11.0 Nausea